=== PATIENT | female | born 1930 | race Caucasian/White ===

== ENCOUNTER 2016-12-20 18:44 | Inpatient (IN) | payer MEDICARE ==
[~2016-12-20] VITALS: Ht 162.6 cm; Wt 72.0 kg
[2016-12-20 18:46] VITALS: BP 108/77; PULSE 115; RESP 18; O2SAT 98
--- NOTE | 2016-12-20 18:58 | ED.REPORT ---
HPI-General Illness Date of Service December 20, 2016 ED Provider: Moni Cary MD Patient is an 86 year old female with a history of Afib on warfarin, presents to the ED after she was contacted her by her PCP for abnormal lab values. She has experienced generalized weakness, sharp and tingling pain in her arms and legs, shortness of breath, and palpitations after eating. She has had similar symptoms in the past when she was previously diagnosed with lymphedema. The patient denies dizziness, chest pain, black/bloody stool, nausea, vomiting or fever. Nursing Notes Stated Complaint: SOB, WEAK Chief Complaint: General Complaint Nursing Notes Reviewed: Yes Allergies: Coded Allergies: Penicillins (Verified Adverse Reaction, Intermediate, DIARRHEA, 12/20/16) Uncoded Allergies: CELECOXIB (Generic Allergy) (Allergy, Mild, Y, 05/28/03) PALPITATIONS BLUEFISH (Allergy, Unknown, 05/28/03) Scheduled Ferrous Sulfate (Ferrous Sulfate) 325 Mg Tablet 325 MG PO DAILY Furosemide (Furosemide) 20 Mg Tab 20 MG PO MORNING Hydroxyzine Pamoate (HydrOXYzine Pamoate) 25 Mg Capsule 25 MG PO QID Metoprolol Succinate ER (Metoprolol Succinate ER) 50 Mg Tab.er.24h 50 MG PO BID Multivitamin (Multivitamins) 1 Each Capsule 1 EACH PO DAILY Potassium Chloride (Potassium Chloride) 20 Meq Tab.er.prt 20 MEQ PO DAILY TAKE WITH FOOD Warfarin Sodium (Warfarin Sodium) 3 Mg Tablet 3 MG PO E,,SAT Warfarin Sodium (Warfarin Sodium) 6 Mg Tablet 6 MG PO SUN,MON,WED,FRI General Time Seen by MD: 18:57 Chief Complaint Other (abnormal lab values) Hx Obtained From: Patient Arrived By: Walk-in Sudden in Onset?: No Onset Occurred: More than a week ago... (3 weeks) Symptom Duration: Since onset Location: : Arm left: Arm right: Leg left: Leg right Quality: Sharp Severity: Current: Moderate Severity: Maximum: Moderate Recent Healthcare: No recent hospitalization Similar Sx Previous: Yes Past Medical History Past Medical History Lymphedema Reports: Atrial fibrillation Past Surgical History No surgical history provided Family History Noncontributory Smoking History Unknown if Ever Smoker Social History Other Social History: Good social support, , Local resident Ambulatory Status Independent Review of Systems Full Review of Systems Constitutional: Reports: Weakness - generalized, Denies: Fever Respiratory: Reports: Shortness of breath Cardiovascular: Reports: Palpitations (After eating), Denies: Chest pain GI: Reports: Abdominal pain (after eating), Denies: Bloody/tarry stool, Nausea, Vomiting Musculoskeletal: Reports: Extremity pain Neurologic: Denies: Dizziness Complete sys rev & neg: except as marked. Physical Exam Vital Signs Vital Signs Date Time Temp Pulse Resp B/P Pulse Ox O2 Delivery O2 Flow Rate FiO2 12/20/16 20:26 99 19 113/57 99 Room Air 12/20/16 18:46 36.3 115 18 108/77 98 Room Air Initial VS: Reviewed, Vital signs abnormal Head / Eyes: Atraumatic, Normocephalic Neck: Supple, Non-tender Skin: Warm, Dry Neurologic: Alert, Oriented Psychiatric: Mood/affect normal, Behavior normal ENT: Atraumatic, Pharynx NL Mouth: Positive: Mucous membranes dry Respiratory / Chest: Atraumatic, Breath sounds NL, Breath sounds = bilat, No respiratory distress Cardiovascular: Heart rate NL, Heart sounds NL, No gallop, No murmurs, No rubs Heart Rate / Rhythm: Positive: Irreg irregular rhythm Abdomen: No guarding, No rebound Tenderness/Guarding/Rebound: Positive: Tender epigastric Lower Extremity / Pelvis / MS: Atraumatic, Inspection NL, Full range of motion , No swelling, No edema Rectal for Blood: Positive: Blood - occult heme + Stool is brown Interpretation & Diagnostics Lab Results Interpretation Result Diagram: 12/20/16222712/20/16 193 Test 12/20/16 19:30 White Blood Count 5.7th/mm3 (3.8-10.1) Red Blood Count 3.07mil/mm3 (3.90-5.20) Mean Corpuscular Volume 74.6fL (81-100) Mean Corpuscular Hemoglobin 21.5pg (27.0-35.0) Mean Corpuscular Hemoglobin Concent 28.8% (32.0-37.0) Red Cell Distribution Width 19.4% (12.3-15.4) Platelet Count 290bil/L (150-400) Neutrophils (%) (Auto) 70.6% (40-74) Lymphocytes (%) (Auto) 17.9% (14-46) Monocytes (%) (Auto) 9.1% (4-12) Eosinophils (%) (Auto) 1.8% (0-5) Basophils (%) (Auto) 0.4% (0-3) Prothrombin Time 54.1sec (8.1-12.5) Prothromb Time International Ratio 4.89ratio Activated Partial Thromboplast Time 29.5sec (22.8-33.0) Sodium Level 140mEq/L (134-144) Potassium Level 4.2mEq/L (3.5-5.2) Chloride Level 103mEq/L (97-108) Carbon Dioxide Level 21mmol/L (18-29) Blood Urea Nitrogen 43mg/dL (8-27) Creatinine 1.38mg/dL (0.57-1.00) Estimat Glomerular Filtration Rate 52mL/min (>59) Glucose Level 121mg/dL (60-99) Calcium Level 8.7mg/dL (8.5-10.1) Magnesium Level 2.4mg/dL (1.6-2.6) Total Bilirubin 0.4mg/dL (0.0-1.2) Aspartate Amino Transf (AST/SGOT) 63U/L (0-50) Alanine Aminotransferase (ALT/SGPT) 67U/L (0-32) Alkaline Phosphatase 122U/L (25-165) Troponin T < 0.010ug/L (0.0-0.011) Pro-B-Type Natriuretic Peptide 1729pg/mL (0-738) Total Protein 6.0g/dL (6.4-8.4) Albumin 3.6g/dL (3.4-5.0) Lipase 79U/L (13-60) Hold Banks Top Tube Received (Received) ECG Interpretation ECG Interpretation: Atrial fibrillation with a rate of [address] ST depressions in V1-V3 IVCD Time: 19:15 Interpreted by: ED physician X-Ray Chest Interpretation Chest Xray Interpretation: IMPRESSION: Small right pleural effusion with adjacent atelectasis. Please correlate clinically. Probable large hiatal hernia (this could be confirmed with upper GI series) and bibasilar atelectasis/interstitial disease. Scoliosis Dictated by: Kashif Angelo M.D. on 12/20/2016 at 20:14 Interpretation / Wet Read by: Interpret - Radiologist Re-Eval/Medical Decision Med Decision/Clinical Course This patient was sent in by her primary care physician for anemia. She has been declining over several months and has been worse over the past 2 weeks. Her exam reveals that she is heme positive with brown stool. She could have peptic ulcer disease or another source of bleeding. The patient was slightly tachycardic in A. fib which did improve, no point was she hypotensive. Her bleeding seems to be subacute and not massive given her symptoms. She was started on Protonix drip and was given her first bag of FFP and packed red blood cells prior to going to the floor. Patient had a repeat hemoglobin which was similar to her initial one, she only received 50 mL of packed red cells at that point in time. Source of Hx: Old records Time of Eval: 20:00 Re-Evaluation/Progress Note: Patients diagnosis and plan for discharge is discussed. She understands and agrees with the plan. All questions have been answered at this time. Consultation #1: Referral / Consult Name: Omero Dickson MD Consulted With: Hospitalist Cigar Patcher: Will see patient, Agrees with eval, Agrees with plan, Accepts admit Consultation #2: Referral / Consult Name: Tashi Villa MD Call Returned at: 21:30 Note: Spoke with the court collections officer processing technician. Counseled Regarding: Diagnosis, Lab results, Need for admission Discharge & Departure Primary Impression: GI bleed GI bleed type/associated pathology: unspecified gastrointestinal hemorrhage type Qualified Code: K92.2 - Gastrointestinal hemorrhage, unspecified Additional Impressions: Severe anemia Warfarin-induced coagulopathy Disposition: ADMITTED TO HOSPITAL Discharge Condition All VS Reviewed: Yes Condition: Stable Referrals: Bladimir Navarro MD (PCP) Scribe Attestation Portions of this note were transcribed by Bret Valenzuela and Lennie Zheng. I, Dr. Cary personally performed the history, physical exam and medical decision- making; I reviewed and confirmed the accuracy of the information in the transcribed note. Signed by: Dominic Chong, 12/20/2016 - [id number]. copies to: Bladimir Navarro MD, Jena M MD December 20, 2016 18:58 Bret Valenzuela December 20, 2016 19:19 Lennie Zheng December 20, 2016 21:05
[2016-12-20] MEDS ORDERED: 0.9% Sodium Chloride 500 ML IV ONE (19:25)
[2016-12-20 19:55] LABS: BASOPHILS % (AUTO) 0.4 % (0-3); EOSINOPHILS % (AUTO) 1.8 % (0-5); MONOCYTES % (AUTO) 9.1 % (4-12); Mean Corpuscular Hemoglobin 21.5 pg (27.0-35.0); Mean Corpuscular Volume 74.6 fL (81-100); NEUTROPHILS % (AUTO) 70.6 % (40-74); Platelet Count 290 bil/L (150-400)
[2016-12-20 20:00] LABS: INR 4.89 ratio
[2016-12-20 20:09] LABS: TROPONIN T < 0.010 ug/L (0.0-0.011)
[2016-12-20 20:16] LABS: Lipase 79 U/L (13-60); Magnesium 2.4 mg/dL (1.6-2.6)
--- NOTE | 2016-12-20 20:17 | DRSVH ---
PROCEDURE: X-RAY CHEST ONE VIEW, PORTABLE ([id number]) INDICATIONS: SHORT OF BREATH TECHNIQUE: One view of the chest was acquired. COMPARISON: None. FINDINGS: Surgical changes and devices: None. Lungs and pleura: No pneumothorax. Diffuse interstitial changes and scarring/atelectasis. Small righ t pleural effusion. Probable large hiatal hernia although technically indeterminate.. Mediastinum: Mediastinal contours appear normal. Heart size is normal. Bones and chest wall: No suspicious bony lesions. There is severe scoliosis Overlying soft tissues a ppear unremarkable. IMPRESSION: Small right pleural effusion with adjacent atelectasis. Please correlate clinically. Probable large hiatal hernia (this could be confirmed with upper GI series) and bibasilar atelectasis /interstitial disease. Scoliosis Dictated by: Kashif Angelo M.D. on 12/20/2016 at 20:14 Approved by: Kashif Angelo M.D. on 12/20/2016 at 20:16
[2016-12-20 20:26] VITALS: BP 113/57; PULSE 99; RESP 19; O2SAT 99
[2016-12-20] MEDS ORDERED: HYDR-3797 PO (20:49)
[2016-12-20] MEDS ORDERED: POTA20TA16 PO (20:49)
[2016-12-20] MEDS ORDERED: WARF3TAB7 PO (20:49)
[2016-12-20] MEDS ORDERED: WARF6TAB6 PO (20:49)
[2016-12-20] MEDS ORDERED: MULT1CAP33 PO (20:49)
[2016-12-20] MEDS ORDERED: FUR20 PO (20:49)
[2016-12-20] MEDS ORDERED: FERR-83 PO (20:49)
[2016-12-20] MEDS ORDERED: METO-272 PO (20:49)
[2016-12-20] MEDS ORDERED: Phytonadione (Adult) 10 MG in Dextrose 5%-Pha MIX 50 ML IV ONE (21:10)
[2016-12-20] MEDS ORDERED: Pantoprazole Inj 80 MG, Pharmacy To Mix 1 EA in 0.9% Sodium Chloride 80 ML IV ONE ×4 (21:10→21:25)
[2016-12-20] MEDS ORDERED: Pantoprazole 4 mg/mL 10 mL Inj IVPUSH ONE (21:10)
[2016-12-20] MEDS ORDERED: Furosemide 10 mg/mL 4 mL Inj IVPUSH ONE (21:20)
[2016-12-20] MEDS ORDERED: Polyethylene Glycol (PEG) 17 Gm Powder PO PRN (21:20)
[2016-12-20] MEDS ORDERED: Ondansetron 2 mg/mL 2 mL Inj IVPUSH PRN (21:20)
[2016-12-20] MEDS ORDERED: Alum-Mag Hydrox-Simeth 30 mL Suspension PO PRN (21:20)
[2016-12-20 22:00] VITALS: BP 114/61; PULSE 111; RESP 15; O2SAT 98
[2016-12-20 22:59] LABS: APPEARANCE,URINE HAZY (CLEAR,HAZY); COLOR,URINE YELLOW (YELLOW); OCCULT BLOOD,URINE NEGATIVE (NEGATIVE); PH,URINE 5.5 (5.0-8.0); UROBILINOGEN,URINE NORMAL (NORMAL)
[2016-12-21] VITALS (13 sets, daily range): BP systolic 113–142; BP diastolic 71–93; PULSE 68–118; RESP 18–22; O2SAT 94–99
[2016-12-21] MEDS ORDERED: 0.9% Sodium Chloride 250 ML ONE (00:19)
--- NOTE | 2016-12-21 00:45 | PCM.HPMED ---
Subjective Date of Service December 20, 2016 Primary Provider: Admitting Physician: Omero Dickson MD Primary Care Physician: Bladimir Navarro MD Attending Physician: Omero Dickson MD Admit Status: From the Emergency Department, Full Admit, Remote Telemetry Chief Complaint: Low Hemoglobin from Clinic lab results History of Present Illness: Melissa Grijalva is an 86 year old female with Chronic Atrial fibrillation on warfarin, Hypertension, No's esophagitis who presents to [facility] emergency department after she was contacted her by her PCP for abnormal lab values, low Hgb Patient has noticed increased weakness (severe to the point she has to rest every few steps, she was limited in all her activities) for about a week. she also noticed increasing dyspnea especially on exertion. She also had some dizziness. She had a bowel movement earlier today and patient noted it was darker and almost black in color. Denies any hematochezia. Denies any nausea or vomiting. No fever or chills. no prior GI bleeding and no recent NSAID exposure. Patient reported having trouble sleeping at night and also recently having alot of generalized itching. She was prescribed Hydroxyzine but it causes her to be drowsy. She was evaluated by her Primary physician and labs were drawn. She has diagnosis of diverticulosis on Colonoscopy and is currently on Coumadin for Atrial fibrillation Case discussed with Dr Cary, fluids and blood transfusion initiated. She spoke to the electrical contractor Dietary Internship. Guaiac was positive for blood. Review of Systems: Pertinent positives as noted in HPI. All other systems were reviewed and are negative Allergies Coded Allergies: Penicillins (Verified Adverse Reaction, Intermediate, DIARRHEA, 12/20/16) Uncoded Allergies: CELECOXIB (Generic Allergy) (Allergy, Mild, Y, 05/28/03) PALPITATIONS BLUEFISH (Allergy, Unknown, 05/28/03) Home Medications From [facility], NOT YET CONFIRMED Melissa Grijalva [id number] 1930 12/16/2016 02:40 PM 08/24 Balance B-50 tablet take 1 by Oral route every day Coumadin 3 mg tablet take 1 (3MG) by oral route Monday, , Monday 6mg all other days of the week ferrous sulfate 325 mg (65 mg iron) tablet Take one tablet by oral route daily. furosemide 20 mg tablet 1 po q am hydroxyzine pamoate 25 mg capsule take 1 capsule by oral route 4 times every day metoprolol succinate ER 50 mg tablet,extended release 24 hr take 2 tabletS (50MG ) by mouth twice a day Multiple Vitamin Tab take 1 tablet by ORAL route every day with food POTASSIUM CL ER 20 MEQ TABLET TAKE 1 TABLET BY MOUTH EVERY DAY WITH FOOD PMH Osteopenia Paroxysmal SVT (supraventricular tachycardia) No's Esophagitis Atrial fibrillation on Coumadin Psoriasis Hyperlipidemia Valvular disease: Mitral regurgitation and Tricuspid regurgitation Hiatal hernia Diverticulosis Endometrial cancer s/p Hysterectomy DDD (degenerative disc disease), thoracolumbar Lymphedema with venous stasis, followed at the wound care clinic . Surgical History Hysterectomy and BSO Bilateral knee surgery Family History No family history of Colon cancer Both parents lived into the 90s Social History Hx Alcohol Use: No Hx Substance Use: No Hx Tobacco Use: No Smoking Status: Never Smoker Living Arrangement: with Family (her ) Exam Vital Signs Vital Sign - Last Date Time Temp Pulse Resp B/P Pulse Ox O2 Delivery O2 Flow Rate FiO2 12/20/16 20:26 99 19 113/57 99 Room Air 12/20/16 18:46 36.3 Exam General: Alert, Oriented X3, Cooperative, No acute Distress, talking in full sentences Eyes: PERRLA, Scleral Anicteric Mouth: Mouth Normal, Mucous Membranes Moist/[place] Neck: Supple, no Thyromegaly, trachea central. Chest & Lungs: Clear to auscultation & percussion, No adventitious breath sounds, no crackles, no wheeze Cardiovascular: Normal S1, Normal S2, No Murmurs/Rubs/Gallops, Irregularly irregular (No JVD, no peripheral edema) Pulses: Radial (present and equal), Dorsalis Pedi (present and equal) Abdomen: Soft, Non-tender, Non-distended, Normoactive bowel tones. Musculoskeletal: Unremarkable. Normal range of motion, no swollen or erythematous joints Extremities: 3 + pitting edema, no cyanosis, no clubbing. Skin: No rashes. Warm and dry, no erythematous areas. Compressive dressing on both legs Neurological: Grossly neurologically intact, has generalized weakness, Normal Speech, Sensation Intact Lymphatic: Lymph nodes Cervical and Axillary not palpable. Lab and Diagnostics Labs Laboratory Tests Test 12/20/16 19:30 White Blood Count 5.7th/mm3 (3.8-10.1) Red Blood Count 3.07mil/mm3 (3.90-5.20) Hemoglobin 6.6g/dL (12.0-15.6) Hematocrit 22.9% (35.0-46.0) Mean Corpuscular Volume 74.6fL (81-100) Mean Corpuscular Hemoglobin 21.5pg (27.0-35.0) Mean Corpuscular Hemoglobin Concent 28.8% (32.0-37.0) Red Cell Distribution Width 19.4% (12.3-15.4) Platelet Count 290bil/L (150-400) Neutrophils (%) (Auto) 70.6% (40-74) Lymphocytes (%) (Auto) 17.9% (14-46) Monocytes (%) (Auto) 9.1% (4-12) Eosinophils (%) (Auto) 1.8% (0-5) Basophils (%) (Auto) 0.4% (0-3) Prothrombin Time 54.1sec (8.1-12.5) Prothromb Time International Ratio 4.89ratio Activated Partial Thromboplast Time 29.5sec (22.8-33.0) Sodium Level 140mEq/L (134-144) Potassium Level 4.2mEq/L (3.5-5.2) Chloride Level 103mEq/L (97-108) Carbon Dioxide Level 21mmol/L (18-29) Blood Urea Nitrogen 43mg/dL (8-27) Creatinine 1.38mg/dL (0.57-1.00) Estimat Glomerular Filtration Rate 52mL/min (>59) Glucose Level 121mg/dL (60-99) Calcium Level 8.7mg/dL (8.5-10.1) Magnesium Level 2.4mg/dL (1.6-2.6) Total Bilirubin 0.4mg/dL (0.0-1.2) Aspartate Amino Transf (AST/SGOT) 63U/L (0-50) Alanine Aminotransferase (ALT/SGPT) 67U/L (0-32) Alkaline Phosphatase 122U/L (25-165) Troponin T < 0.010ug/L (0.0-0.011) Pro-B-Type Natriuretic Peptide 1729pg/mL (0-738) Total Protein 6.0g/dL (6.4-8.4) Albumin 3.6g/dL (3.4-5.0) Lipase 79U/L (13-60) Hold Banks Top Tube Received (Received) Result Diagram: 12/20/16192912/20/161929 X-Rays, CTs and MRIs X-RAY CHEST ONE VIEW, PORTABLE 11/20/16 IMPRESSION: Small right pleural effusion with adjacent atelectasis. Please correlate clinically. Probable large hiatal hernia (this could be confirmed with upper GI series) and bibasilar atelectasis/interstitial disease. Scoliosis Dictated by: Kashif Angelo M.D. on 12/20/2016 at 20:14 Approved by: Kashif Angelo M.D. on 12/20/2016 at 20:16 Assessment & Plan Melissa Grijalva is an 86 year old female with Chronic Atrial fibrillation on warfarin, Hypertension, No's esophagitis who presents to [facility] emergency department after she was contacted her by her PCP for abnormal lab values, low Hgb 1. Acute Lower GI bleeding. Present on admission Suspect possible Diverticular bleeding. Differential diagnosis includes Colon cancer, Vascular ectasias, Inflammatory bowel disease, Hemorrhoids, Anal fissure. History of No's esophagitis but no clinical evidence of Upper GI bleeding such as hematemesis. INR 4.89 - nothing by mouth - IV fluids resuscitations - Protonix drip - holding Coumadin, vitamin K dose given - GI consultation made 2. Symptomatic anemia due to GI blood loss. Present on admission Chronic Iron deficiency anemia - 2 units packed RBC transfused from ED - monitor H/H, target to keep Hbg > 7 3 Acute Kidney injury. Present on admission Likely due to pre renal azotemia due to hypovolemia - avoid nephrotoxic insults - holding diuretics - monitor urine output - avoid NSAID 4 Lymphedema and venous stasis problems Presumed stable - wound care consult requested - keep leg elevated 5 Hypertension currently stable with no evidence of volume loss - holding Metoprolol tonight in the event patient becomes hypotensive 6 Atrial fibrillation on Coumadin Currently rate controlled - monitor on telemetry - holding Coumadin - Acetaminophen as needed for mild pain/fever/headache - Bowel regimen as needed - Antiemetic as needed Patient admitted under inpatient status with expected length of stay > 2 midnights for severity of present symptoms, complexities of treatment plan and risk for adverse event . Resuscitation Status: CPR: Attempt Resuscitation Omero Dickson MD December 20, 2016 21:24
--- NOTE | 2016-12-21 01:03 | PCM.ADCARE ---
Advance Care Planning Note Purpose of Encounter: Active Diagnoses: Lower GI bleeding, possibly life threatening Acute on chronic anemia Chronic Atrial fibrillation Valvular disease, not a candidate for surgical intervention These active diagnoses are sufficient risk that focused discussion on advance car planning is indicated in order to allow the patient to thoughtfully consider personal goals of care and if situations arise that prevent the ability to personally give input to insure appropriate representation of their personal desires through documentation or informed surrogate decision makers Parties in Attendance: Patient and me Decisional Capacity: Good Plan: I reviewed her above mentioned diagnosis and her desires for ongoing aggressive care, including potential intubation and mechanical ventilation as well as CPR. Also discussed who would speak on her behalf should she be unable to do so, she states her daughter Dottie Clemens to be will be her proxy and power of county attorney. She understands her conditions for both her heart disease and GI bleeding carry poor prognosis with no good treatment options available but she would wanna fight it. " I wanna live long as I can" CODE STATUS: Full Code Time Spent Adv.Care Planning: Total time spent [id number] in education and discussion directly related to Advance Care Plannin minutes Omero Dickson MD December 21, 2016 01:03
--- NOTE | 2016-12-21 03:00 | NUR ---
admit note/transfusion/med rec Pt is admitted to room 3016 from ED around 23:55 for GIB & anemia. Pt finish her 1st bag of FFPs. 2nd unit of PRBCs and FFPs given and tolerated well w/o adverse reaction. IV Vit K given and protonix gtt started. Pt is A&Ox3, but forgetful. no s/s of bleeding. still has frequency due to lasix; denies dysuria. using BSC with 1PA. Pt is oriented to room and plan of care; she verbalized understanding. unable to complete med rec because pt is unable to recall the dosages. will pass on to Day RN/med rec nurse.
[2016-12-21] MEDS: 0.9% Sodium Chloride 1,000 ML IV SCH ×3 (03:15→14:36)
[2016-12-21 05:21] LABS: INR 2.21 ratio
--- NOTE | 2016-12-21 08:32 | PCM.PNMED ---
Subjective Date of Service December 21, 2016 Subjective Pt feeling overall well. Energy level certainly improved following transfusion. No abdominal pain. Still having dark stools overnight. Main complaint with with lower extremities extremities, especially the right calf which she notes is particularly uncomfortable. Legs were elevated overnight given lower extremity edema on doctor order however she notes recurrent level of elevation seems to be exacerbating her calf pain. Chest pain shortness of breath however. Unaware of any palpitations. No other acute complaints at this time other than being hungry and wishing to eat Exam Vital Signs Vital Sign - Last Date Time Temp Pulse Resp B/P Pulse Ox O2 Delivery O2 Flow Rate FiO2 12/21/16 04:51 36.5 110 20 117/76 98 Room Air Intake and Output 12/20/16 12/20/16 12/21/16 Cumulative From/Thru 15:00 23:00 07:00 12/20/16 18:46 - 12/21/16 06:22 Intake Total 500 ml 1249 ml 1749 ml Output Total 2400 ml 2400 ml Balance 500 ml -1151 ml -651 ml Intake Oral 0 ml 0 ml IV Total 500 ml 55 ml 555 ml Packed Cells 694 ml 694 ml FFP 500 ml 500 ml Output Urine Total 2400 ml 2400 ml # Bowel Movements 0 0 General: Alert, Oriented X3, Cooperative, Mild Distress Eyes: Other Mouth: Mucous Membr Moist/Eva Cardiovascular: Other (Irregular rhythm with regular rate. ) Abdomen: Non-tender, Non-distended Extremities: Other (B/L Lower extremity edema, with calves wrapped in UNaboots , not removed for exam with wound care ocnsult pending. ) Neurological: Grossly Neurologically Intact IVs and Medications Medications Reviewed: Medications were reviewed in detail Lab and Diagnostics Result Diagram: 12/21/16 0500 12/20/16 1930 X-Rays, CTs and MRIs X-RAY CHEST ONE VIEW, PORTABLE 11/20/16 IMPRESSION: Small right pleural effusion with adjacent atelectasis. Please correlate clinically. Probable large hiatal hernia (this could be confirmed with upper GI series) and bibasilar atelectasis/interstitial disease. Scoliosis Dictated by: Kashif Angelo M.D. on 12/20/2016 at 20:14 Approved by: Kashif Angelo M.D. on 12/20/2016 at 20:16 Assessment & Plan Melissa Grijalva is an 86 year old female with Chronic Atrial fibrillation on warfarin, Hypertension, No's esophagitis who presents to [facility] emergency department after she was contacted her by her PCP for abnormal lab values, low Hgb 1. Acute Lower GI bleeding. Present on admission Suspect possible Diverticular bleeding. Differential diagnosis includes Colon cancer, Vascular ectasias, Inflammatory bowel disease, Hemorrhoids, Anal fissure. History of No's esophagitis but no clinical evidence of Upper GI bleeding such as hematemesis. INR 4.89 - nothing by mouth - IV fluids resuscitations - Protonix drip - holding Coumadin, vitamin K dose given - GI consultation made, anticipate upper endoscopy later today on recommendation. 2. Symptomatic anemia due to GI blood loss. Present on admission Chronic Iron deficiency anemia - 2 units packed RBC transfused from ED - monitor H/H, target to keep Hbg > 7, currently at goal following transfusion. Pt HDS. 3 Acute Kidney injury. Present on admission Likely due to pre renal azotemia due to hypovolemia - avoid nephrotoxic insults - holding diuretics - monitor urine output - avoid NSAID 4 Lymphedema and venous stasis problems Presumed stable - wound care consult requested and pending - keep leg elevated 5 Hypertension currently stable with no evidence of volume loss - holding Metoprolol tonight in the event patient becomes hypotensive 6 Atrial fibrillation on Coumadin Currently rate controlled - continue monitor on telemetry - holding Coumadin . Pain Evaluation: Adequate Pain Control Resuscitation Status: CPR: Attempt Resuscitation Time spent 25 minutes Rickey Lopes DO December 21, 2016 08:32
[2016-12-21] MEDS: Pantoprazole Inj 80 MG, Pharmacy To Mix 1 EA in 0.9% Sodium Chloride 80 ML IV ONE ×4 (09:19→14:30)
--- NOTE | 2016-12-21 10:07 | NUR ---
Social Work: Initial Assessment Data: Pt is an 86 y/o male admitted for GI bleed, anemia. Pt's PCP is Dr Navarro, pt's insurance is [employer]. EMR reviewed. Readmit score not listed. MILIEU COORDINATOR met with pt at bedside, role explained. Pt states that she lives on [address] with her where she uses no DME. Pt states she does not drive, has no hx of HH or SNF, no LTC or VA benefits, is not a caregiver. No anticipated d/c planning needs at this time. MILIEU COORDINATOR will continue to follow if needs arise. Assessment: Pt who is independent at baseline. Plan: Pt will d/c home via POV with spouse when medically stable. No anticipated d/c planning needs at this time. MILIEU COORDINATOR will R/O possible HH need. MILIEU COORDINATOR will continue to follow if needs arise. ANTONIO Lugo Addendum: 12/21/16 at 1011 by PATY KNIGSLEY Amended: Links added.
--- NOTE | 2016-12-21 12:13 | NUR ---
Wound Care 86 yo female admitted with anemia, well known to [facility] for treatment of venous stasis ulcers of bilateral lower extremities. Seen at bedside for rewrap of her legs as she would have been due for a dressing change at the wound center today. 3 layer compression wraps applied for continued edema control, currently does not have any leg ulcerations. Follow up at the wound center for continuation of care on discharge.
--- NOTE | 2016-12-21 14:33 | PCM.CHPMED ---
Subjective Date of Service: December 21, 2016 Primary Physician: Admitting Physician: Omero Dickson MD Primary Care Physician: Bladimir Navarro MD Attending Physician: Omero Dickson MD Chief Complaint: Chief Complaint: Symptomatic/fatigue anemia History of Present Illness: 86-year-old female on warfarin for chronic A. 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 Patient states over approximately the last month she has felt extremely tired and rundown. She states that she has not recognized any red or black tarry stools, however nursing states that in the emergency department she had lack tarry stool. Denies any epigastric, abdominal pain or any recent history of GERD-like symptoms. Patient also denies any alcohol use in many years as well as no use of NSAIDs as she has been strictly advised not to use these. Patient does have arthritis but only takes Tylenol. On admission last site the patient was fluid resuscitated and transfused PRBCs and FFP. Patient's INR was actually supratherapeutic at 4.89 with repeat this a.m. 2.21. Patient also has what looks to be acute kidney injury although this difficult to tell due to no baseline. Patient has a very mild transaminase elevation as well as a mild lipase elevation. GI was consult and for possible scope to identify source of bleeding. PMH Past Medical History Osteopenia Paroxysmal SVT (supraventricular tachycardia) No's Esophagitis Atrial fibrillation on Coumadin Psoriasis Hyperlipidemia Valvular disease: Mitral regurgitation and Tricuspid regurgitation Hiatal hernia Diverticulosis Endometrial cancer s/p Hysterectomy DDD (degenerative disc disease), thoracolumbar Lymphedema with venous stasis, followed at the wound care clinic Hx Any Other Health Problems?: YesHx Diabetes: NoBedside Blood Glucose: 124 Surgical History Hysterectomy and BSO Bilateral TKA Home Medications Coumadin 3 mg tablets, Monday; 6 mg on Monday, Monday, Monday, Monday Ferrous sulfate 325 mg Furosemide 20 mg tablets Hydroxyzine pamoate 25 mg Metoprolol succinate ER 50 mg Multivitamin Potassium chloride ER 20 mEq Allergies: Coded Allergies: Penicillins (Verified Adverse Reaction, Intermediate, DIARRHEA, 12/20/16) Uncoded Allergies: CELECOXIB (Generic Allergy) (Allergy, Mild, Y, 05/28/03) PALPITATIONS BLUEFISH (Allergy, Unknown, 05/28/03) Family History Family History No history of colon cancer Social History Occupation: retiredHx Alcohol Use: NoHx Substance Use: NoHx Tobacco Use: No Smoking Status: Never Smoker Living Arrangement: with Family (her ) Exam Vital Signs Vital Sign - Last Date Time Temp Pulse Resp B/P Pulse Ox O2 Delivery O2 Flow Rate FiO2 12/21/16 11:02 87 12/21/16 09:44 36.4 20 132/79 94 Room Air Intake and Output 12/20/16 12/20/16 12/21/16 Cumulative From/Thru 15:00 23:00 07:00 12/20/16 18:46 - 12/21/16 06:22 Intake Total 500 ml 1249 ml 1749 ml Output Total 2400 ml 2400 ml Balance 500 ml -1151 ml -651 ml Intake Oral 0 ml 0 ml IV Total 500 ml 55 ml 555 ml Packed Cells 694 ml 694 ml FFP 500 ml 500 ml Output Urine Total 2400 ml 2400 ml # Bowel Movements 0 0 Additional Information: General: Patient awake alert in no acute distress HEENT: Membranes dry, conjunctiva pale Cardio: Regular rate Respiratory: CTA bilaterally Abdomen: No distention, positive bowel sounds, no noticeable tenderness Extremities: Bilateral lower extremities are wrapped in Richard wraps this patient states his sleeping; newly wrapped and did not remove wrap Neuro: Appears to be neurologically intact by sensation and cranial nerves Psych: Appropriate mood and affect Skin: No rashes noted or petechia Lab and Diagnostics Result Diagram: 12/21/16 0500 12/20/16 1930 X-Rays, CTs and MRIs Chest x-ray Small right pleural effusion with adjacent atelectasis. Please correlate clinically. Probable large hiatal hernia (this could be confirmed with upper GI series) and bibasilar atelectasis/interstitial disease. Scoliosis Dictated by: Kashif Angelo M.D. on 12/20/2016 at 20:14 Assessment & Plan Assessment Assessment and plan Problem list Acute GI bleed with blood loss anemia Chronic atrial fibrillation on warfarin Hyperglycemia Mild transaminitis and elevated lipase Possible acute kidney injury 36-year-old female with what appears to be melena due to acute GI bleed with suspicion for gastric or duodenal ulceration due to patient's history of No 's esophagus and GERD. Patient has not been on a PPI or H2 everardo and is currently on warfarin the supra therapeutic INR 4.89. Today will attempt to perform an EGD for identification and pending those results will consider colonoscopy. She required a colonoscopy tomorrow we will start her on GoLYTELY tonight. Continue Protonix drip has already initiated by the hospitalist. She is to be made nothing by mouth until after the procedure. Also recommend obtaining an A1c as patient's blood sugar was elevated on admit. Also recommend repeat CMP for liver studies and serial H&H through the night, as well as to monitor the MICHAEL. Repeat LFTs and lipase tomorrow. I saw and examined the patient with the resident and agree with above. Problems: Pain Evaluation: Adequate Pain Control Resuscitation Status: CPR: Attempt Resuscitation Iain Crum DO December 21, 2016 14:33 Tashi Villa MD December 22, 2016 09:03
[2016-12-21] MEDS: MeTOProlol XL 50 mg ER24 Tablet PO SCH (22:42)
[2016-12-22] VITALS (12 sets, daily range): BP systolic 88–129; BP diastolic 59–89; PULSE 90–115; RESP 14–20; O2SAT 91–95
[2016-12-22] MEDS: 0.9% Sodium Chloride 1,000 ML IV SCH (00:39)
--- NOTE | 2016-12-22 06:08 | NUR ---
Shift Note Pt NPO after midnight d/t endoscopy procedure scheduled for this morning (5-4). Pt is SOB upon exertion on RA. Pt on tele A-fib in the 100's. Legs are wrapped. Pt up to BSC with FWW, passing gas. Pt uses cane at home. Uses call light appropriately
[2016-12-22 07:02] LABS: BASOPHILS % (AUTO) 0.3 % (0-3); EOSINOPHILS % (AUTO) 1.5 % (0-5); MONOCYTES % (AUTO) 10.6 % (4-12); Mean Corpuscular Hemoglobin 23.7 pg (27.0-35.0); Mean Corpuscular Volume 76.9 fL (81-100); Platelet Count 239 bil/L (150-400)
[2016-12-22] MEDS ORDERED: Propofol 10,000 mCg/mL 20 mL Inj ONE (09:11)
[2016-12-22] MEDS ORDERED: fentaNYL-PF 50 mCg/mL 2 mL Inj ONE (09:11)
[2016-12-22] MEDS ORDERED: Ketamine 10 mg/mL 20 mL Inj ONE (09:11)
[2016-12-22] MEDS ORDERED: Phenylephrine/NS 100 mCg/mL 10 mL Syringe IVPUSH ONE (09:11)
[2016-12-22 10:12] LABS: INR 1.36 ratio
[2016-12-22] MEDS: MeTOProlol XL 50 mg ER24 Tablet PO SCH ×2 (10:24→20:30)
--- NOTE | 2016-12-22 10:27 | PCM.PNMED ---
Subjective Date of Service December 22, 2016 Subjective GI progress note Patient did well overnight. She was disappointed that she did not go to EGD yesterday. Patient denies symptoms except for "being tired of lying in bed." No abdominal pain, nausea, vomiting, bowel movements, melena, hematochezia, or other review of systems. Patient has been nothing by mouth since midnight. Do not resume metoprolol this morning at difficulty finding the nurse to give her her metoprolol. Exam Vital Signs Vital Sign - Last Date Time Temp Pulse Resp B/P Pulse Ox O2 Delivery O2 Flow Rate FiO2 12/22/16 09:51 36.6 100 19 129/89 95 Nasal Cannula 2.00 Intake and Output 12/21/16 12/21/16 12/22/16 Cumulative From/Thru 15:00 23:00 07:00 12/20/16 18:46 - 12/22/16 06:04 Intake Total 351 ml 400 ml 2376 ml 4876 ml Output Total 800 ml 3200 ml Balance 351 ml -400 ml 2376 ml 1676 ml Intake Oral 400 ml 400 ml IV Total 351 ml 2376 ml 3282 ml Packed Cells 694 ml FFP 500 ml Output Urine Total 800 ml 3200 ml # Voids 1 1 # Bowel Movements 0 0 Exam General: Patient awake alert in no acute distress HEENT: Membranes dry, conjunctiva pale Cardio: Regular rate Respiratory: CTA bilaterally Abdomen: No distention, positive bowel sounds, no noticeable tenderness Extremities: Bilateral lower extremities are wrapped in Richard wraps this patient states his sleeping; newly wrapped and did not remove wrap Neuro: Appears to be neurologically intact by sensation and cranial nerves Psych: Appropriate mood and affect Skin: No rashes noted or petechia IVs and Medications Medications Reviewed: Medications were reviewed in detail Lab and Diagnostics Result Diagram: 12/22/16 0640 12/22/16 0640 X-Rays, CTs and MRIs X-RAY CHEST ONE VIEW, PORTABLE 11/20/16 IMPRESSION: Small right pleural effusion with adjacent atelectasis. Please correlate clinically. Probable large hiatal hernia (this could be confirmed with upper GI series) and bibasilar atelectasis/interstitial disease. Scoliosis Dictated by: Kashif Angelo M.D. on 12/20/2016 at 20:14 Approved by: Kashif Angelo M.D. on 12/20/2016 at 20:16 Assessment & Plan Assessment/plan 86-year-old female with symptomatic and severe anemia second to presumed GI blood loss. Patient was supposed to go for EGD yesterday but was unable to do so. Current plan is for EGD at noon today. In the meantime the patient should be kept nothing by mouth except for her metoprolol was given this morning and this has been discussed with the nurse. She also stay on IV hydration as well as Protonix drip. After EGD patient can be switched from protonic strip to Protonix 40 mg IV push twice a day. Reviewing the patient's blood work patient would likely benefit greatly from iron supplementation after discharge. Additional recommendations will be made after procedure today. I have seen and examined the patient with the resident and agree with above. Thank you for allowing us to participate in the care of this patient Resuscitation Status: CPR: Attempt Resuscitation Iain Crum DO December 22, 2016 10:27 Tashi Villa MD December 23, 2016 16:40
--- NOTE | 2016-12-22 10:36 | PCM.PNMED ---
Subjective Date of Service December 22, 2016 Subjective Patient was unable to receive upper endoscopy yesterday due to K procedures causing a delay in surgical schedule. Nonetheless she remained stable overnight continues on IV fluids has no acute complaints. There is an abdominal pain mainly just feels constricted with all tubes attached to her continued hospitalization has been a bit draining. He does understand the need for thorough. Tools are still dark but not excessively so she notes no blood in stools. Otherwise no acute complaints. Denies fever chills shortness of breath. Does endorse a little bit of weakness this is more chronic. Exam Vital Signs Vital Sign - Last Date Time Temp Pulse Resp B/P Pulse Ox O2 Delivery O2 Flow Rate FiO2 12/22/16 09:51 36.6 100 19 129/89 95 Nasal Cannula 2.00 Intake and Output 12/21/16 12/21/16 12/22/16 Cumulative From/Thru 15:00 23:00 07:00 12/20/16 18:46 - 12/22/16 06:04 Intake Total 351 ml 400 ml 2376 ml 4876 ml Output Total 800 ml 3200 ml Balance 351 ml -400 ml 2376 ml 1676 ml Intake Oral 400 ml 400 ml IV Total 351 ml 2376 ml 3282 ml Packed Cells 694 ml FFP 500 ml Output Urine Total 800 ml 3200 ml # Voids 1 1 # Bowel Movements 0 0 Exam General: Alert, Oriented X3, Cooperative, Mild Distress Mouth: Mucous Membrane Moist/Tubac Cardiovascular: Irregular rhythm with regular rate. Abdomen: Non-tender, Non-distended Extremities: B/L Lower extremity edema, with calves freshly wrapped in UNaboots from yesterday Neurological: Grossly Neurologically Intact Skin; multiple ecchymosis and bruising on upper extremities from previous blood draws. IVs and Medications Medications Reviewed: Medications were reviewed in detail Lab and Diagnostics Result Diagram: 12/22/16 0640 12/22/16 0640 X-Rays, CTs and MRIs X-RAY CHEST ONE VIEW, PORTABLE 11/20/16 IMPRESSION: Small right pleural effusion with adjacent atelectasis. Please correlate clinically. Probable large hiatal hernia (this could be confirmed with upper GI series) and bibasilar atelectasis/interstitial disease. Scoliosis Dictated by: Kashif Angelo M.D. on 12/20/2016 at 20:14 Approved by: Kashif Angelo M.D. on 12/20/2016 at 20:16 Assessment & Plan Melissa Grijalva is an 86 year old female with Chronic Atrial fibrillation on warfarin, Hypertension, No's esophagitis who presents to [facility] emergency department after she was contacted her by her PCP for abnormal lab values, low Hgb 1. Acute Lower GI bleeding. Present on admission Suspect possible Diverticular bleeding. Differential diagnosis includes Colon cancer, Vascular ectasias, Inflammatory bowel disease, Hemorrhoids, Anal fissure. History of No's esophagitis but no clinical evidence of Upper GI bleeding such as hematemesis. INR 4.89 - nothing by mouth, endoscopy bili yesterday of a plan for today - IV fluids resuscitations - Protonix drip was not started though this was GI plan, have now initiated Protonix 80 mg IV twice daily, given stable H&H in the setting of no PPI use overnight. - holding Coumadin, vitamin K dose given - GI consultation made, continues to appreciate assistance with this complicated case 2. Symptomatic anemia due to GI blood loss. Present on admission Chronic Iron deficiency anemia - 2 units packed RBC transfused from ED - monitor H/H, target to keep Hbg > 7, currently at goal following transfusion. Pt HDS. - H&H up returning overnight, and recurrent discontinuation of Protonix, lack of dark tarry stool supports cessation of GI bleeding. Stability will be helpful nonetheless toward identify location of GI bleed, and support this is ( diagnosis. 3 Acute Kidney injury. Present on admission Likely due to pre renal azotemia due to hypovolemia - avoid nephrotoxic insults - holding diuretics - monitor urine output - avoid NSAID 4 Lymphedema and venous stasis problems Presumed stable - wound care consult requested and pending - keep leg elevated 5 Hypertension currently stable with no evidence of volume loss - holding Metoprolol tonight in the event patient becomes hypotensive 6 Atrial fibrillation on Coumadin Currently rate controlled - continue monitor on telemetry - holding Coumadin 7. Hyponatremia - Patient's been transitioned to half-normal saline while nothing by mouth - Conditions mild in nature we will continue to monitor. Pain Evaluation: Adequate Pain Control Resuscitation Status: CPR: Attempt Resuscitation Time spent 30 minutes Rickey Lopes DO December 22, 2016 10:36
[2016-12-22] MEDS: Pantoprazole 4 mg/mL 10 mL Inj IVPUSH SCH ×2 (10:45→17:58)
--- NOTE | 2016-12-22 14:58 | NUR ---
Pt off floor to Endoscopy Tele removed and SL per request. Addendum: 12/22/16 at 1708 by EPIFANIO KRAMER RN Pt back on floor around 1700. Tele placed back on. No s/sx of distress. Denies pain/SOB. Report received from ENDO.
--- NOTE | 2016-12-22 15:23 | PCM.HPANE ---
Patient Data Date of Service: December 22, 2016 Surgeon Admitting Provider:Omero Dickson MD Attending Provider:Omero Dickson MD Primary Care Physician:Bladimir Navarro MD Other Provider: Reason for Visit Gi Bleed, Anemia Ht/WT & BMI Height (Feet): 5 Height (Inches): 4.00 Weight (Kilograms): 69.600 Body Mass Index 26.00 Allergies Coded Allergies: Penicillins (Verified Adverse Reaction, Intermediate, DIARRHEA, 12/20/16) Uncoded Allergies: CELECOXIB (Generic Allergy) (Allergy, Mild, Y, 05/28/03) PALPITATIONS BLUEFISH (Allergy, Unknown, 05/28/03) Past Anesthesia History Anesthesia History: Denies:: Abnormal Airway, Anesthesia Reactions, Difficult Intubation, Fam Anesthesia Reaction, Fam Malignant Hypertherm, Malignant Hyperthermia Diabetes History Hx Diabetes?: No Current Bedside Blood Glucose: 124 MRSA MRSA: No Medications Blood Thinner: Coumadin Last Dose Blood Thinner: December 20, 2016 Home Meds Incl Beta Suzie: Yes Date Beta Suzie Taken: December 22, 2016 Time Beta Suzie Taken: 1000 Reported Medications Ferrous Sulfate 325 Mg Wquees600 Mg PO DAILY 30 Days Ref 0 12/20/16 Multivitamin (Multivitamins)1 Each Capsule1 Each PO DAILY 12/20/16 Furosemide 20 Mg Tab20 Mg PO MORNING 30 Days Ref 0 12/20/16 Potassium Chloride 20 Meq Tab.er.prt20 Meq PO DAILY 30 Days Ref 0 TAKE WITH FOOD 12/20/16 Metoprolol Succinate ER 50 Mg Tab.er.[id number] Mg PO BID Ref 0 12/20/16 Warfarin Sodium 6 Mg Tablet6 Mg PO MON,MON,WED,MON 30 Days 12/20/16 Warfarin Sodium 3 Mg Tablet3 Mg PO MON,,MON 30 Days Ref 0 12/20/16 Hydroxyzine Pamoate (HydrOXYzine Pamoate)25 Mg [id number] Mg PO QID Ref 0 12/20/16 History History of ENT Problems?: Yes HEENT History: Positive for:: Cataracts (R cataract surgery) Hearing Problem (mild [place]) Denies:: Abnormal Airway Difficult Intubation Dysphagia Glaucoma Denture Type: None 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 Hx of Problems?: Yes Genitourinary History: Positive for:: Urinary Tract Infection Denies:: Kidney Stones Female Hx: Denies:: Currently Endometriosis Pelvic Inflammatory Problems with Breasts? Hx Musculoskeletal Problems?: Yes Musculoskeletal History: Positive for:: Joint Replacement (bilat knees) Denies:: Back Injury Fibromyalgia Musculoskeletal Trauma Hx of Psycho/Social Problems?: No Psycho Social History: Denies:: Anxiety Hx Depression Hx Surgeries?: Yes (bilat knee replacement; tonsillectomy; R cataract surgery) Hx Any Other Health Problems?: Yes Other History: Positive for:: Hospitalization (pt unsure) Denies:: Cancer Thyroid Disease History Blood Transfusions: Denies:: Accept Blood Products? Blood Transfusions Hx Diabetes: NoBedside Blood Glucose: 124 Occupation: retired Hx Alcohol Use: NoHx Substance Use: No Smoking Status: Never Smoker Stop/Bang Treated for Sleep Apnea?: No Do You Have a CPAP Machine?: No S-Snoring: Do You Snore Loudly: No T-Tired: feel tired, fatigued: No O-Obsered: Observed not breath: No P-Blood Pressure: treated: Yes B- Body Mass Index > 35 kg/m2: No A- Age over 50: Yes N- Neck Large Circumference: No G- Gender Male: No YUDY Total Score: 2 YUDY Risk Assessment: Low Risk, <3 Yes Risk Assessment Category Category 1A: Patient has history of documented sleep apnea, and HAS NOT received any narcotic, sedative or anesthesia administration during this stay. Category 1B: Patient has history of documented sleep apnea, and HAS received any narcotic , sedative or anesthesia administration during this stay Category 2: Patient has SUSPECTED Obstructive Sleep Apnea, and HAS received any narcotic , sedative or anesthesia administration during this stay. Category 3: Patient has SUSPECTED Obstructive Sleep Apnea and HAS NOT received narcotic, sedative or anesthesia administration during this stay. Category 4: Outpatient in Procedural Areas with known sleep apnea or who screen positive for High Risk via the STOP/BANG questionnaire. Exam Exam Vital Signs Vital Signs Date Time Temp Pulse Resp B/P Pulse Ox O2 Delivery O2 Flow Rate FiO2 12/22/16 15:04 36.3 98 14 108/79 94 Room Air 12/22/16 09:51 36.6 100 19 129/89 95 Nasal Cannula 2.00 General Appearance: Alert, Oriented X3, Cooperative, Mild Distress HEENT/AIRWAY: MP 2 Lungs: Clear to Auscultation, Normal Air Movement Heart: Exam Unremarkable, Regular Rate/Rhythm, No Murmurs/Rubs/Gallops Meds/Labs/Diagnostics Admission Meds Current Medications Metoprolol Succinate 50 mg 50 mg BID PO Last administered on 12/22/16 10:24; Start 12/21/16 at 22:23 Sodium Chloride (1/2 Normal Saline) 1,000 ml @ 100 mls/hr Q10H IV Last administered on 12/22/16 10:45; Start 12/22/16 at 10:30 Pantoprazole (Protonix Inj) 80 mg BIDAC IVPUSH Last administered on 12/22/16 10 :45; Start 12/22/16 at 10:35 Bedside Blood Glucose: 124 Labs Test 12/20/16 19:30 12/20/16 22:53 12/22/16 06:40 12/22/16 09:45 Activated Partial Thromboplast Time 29.5sec (22.8-33.0) Magnesium Level 2.4mg/dL (1.6-2.6) Troponin T < 0.010ug/L (0.0-0.011) Pro-B-Type Natriuretic Peptide 1729pg/mL (0-738) Lipase 79U/L (13-60) Hold Banks Top Tube Received (Received) Urine Color Yellow (YELLOW) Urine Appearance Hazy (CLEAR,HAZY) Urine pH 5.5 (5.0-8.0) Urine Specific Clemons 1.010 (1.003-1.035) Urine Protein Negativemg/dL (NEG,TRACE) Urine Glucose (UA) Negativemg/dL (NEGATIVE) Urine Ketones Negativemg/dL (NEGATIVE) Urine Occult Blood Negative (NEGATIVE) Urine Nitrite Positive (NEGATIVE) Urine Bilirubin Negative (NEGATIVE) Urine Urobilinogen Normalmg/dL (NORMAL) Urine Leukocyte Esterase Small (NEGATIVE) Urine RBC 0-2/hpf (0-2) Urine WBC 0-5/hpf (0-5) Urine Epithelial Cells Few/hpf (NONE-MOD) Urine Crystals None seen (NONE SEEN) Urine Bacteria Many/hpf (NONE-FEW) Urine Hyaline Casts Occasional/lpf (NONE) Urine Granular Casts None seen (NONE SEEN) Urine Waxy Casts None seen (NONE SEEN) Urine Red Blood Cell Casts None seen (NONE SEEN) Urine White Blood Cell Casts None seen (NONE SEEN) Urine Mucus None seen (None Seen) Urine Trichomonas None seen (NONE SEEN) Urine Yeast None (NONE SEEN) Urinalysis Comment None Urine Culture Reflexed Indicated White Blood Count 6.6th/mm3 (3.8-10.1) Red Blood Count 3.89mil/mm3 (3.90-5.20) Hemoglobin 9.2g/dL (12.0-15.6) Hematocrit 29.9% (35.0-46.0) Mean Corpuscular Volume 76.9fL (81-100) Mean Corpuscular Hemoglobin 23.7pg (27.0-35.0) Mean Corpuscular Hemoglobin Concent 30.8% (32.0-37.0) Red Cell Distribution Width 20.6% (12.3-15.4) Platelet Count 239bil/L (150-400) Neutrophils (%) (Auto) 74.0% (40-74) Lymphocytes (%) (Auto) 13.3% (14-46) Monocytes (%) (Auto) 10.6% (4-12) Eosinophils (%) (Auto) 1.5% (0-5) Basophils (%) (Auto) 0.3% (0-3) Sodium Level 146mEq/L (134-144) Potassium Level 4.0mEq/L (3.5-5.2) Chloride Level 109mEq/L (97-108) Carbon Dioxide Level 22mmol/L (18-29) Blood Urea Nitrogen 29mg/dL (8-27) Creatinine 0.82mg/dL (0.57-1.00) Estimat Glomerular Filtration Rate 95mL/min (>59) Glucose Level 89mg/dL (60-99) Calcium Level 8.4mg/dL (8.5-10.1) Total Bilirubin 1.3mg/dL (0.0-1.2) Aspartate Amino Transf (AST/SGOT) 70U/L (0-50) Alanine Aminotransferase (ALT/SGPT) 68U/L (0-32) Alkaline Phosphatase 129U/L (25-165) Total Protein 5.0g/dL (6.4-8.4) Albumin 3.4g/dL (3.4-5.0) Prothrombin Time 14.6sec (8.1-12.5) Prothromb Time International Ratio 1.36ratio Plan Impression Patient chart reviewed, patient interviewed and anesthestic plan with risks, benefits, and alternatives discussed, and informed consent obtained. NPO per Anesth. Guidelines: Yes ASA Physical Status: ASA3 Severe Disease Anesthetic Plan: MAC Bene/Risks/Altern/Consents: Yes HP Complete Prior to Induction: Yes Martinez Jane MD December 22, 2016 15:23
[2016-12-22] MEDS ORDERED: Lactated Ringer's 1,000 ML IV ONE ×2 (15:33)
--- NOTE | 2016-12-22 16:13 | PCM.ENDEGD ---
EGD Date of Service: December 22, 2016 Physician Omero Dickson MD Pre Procedure Diagnosis: Anemia Post Procedure Dx & Findings: Large hiatal hernia No's esophagus suspected fundic polyp and small intestine AVM. Procedure Esophagogastroduodenoscopy PROCEDURE IN DETAIL: After proper sedation, Olympus video endoscope was inserted into patient's mouth and esophagus was successfully intubated. Scope introduced esophagus. Esophagus showed normal shiny whitish mucosa consistent with squamous cell component. The Z line was irregular I think there is a 3 cm No's esophagus without any ulcer or mass or nodule. Stomach further advanced to the stomach. Patient had a huge hiatal hernia. It appears over half of her stomach is in the chest. Small 2-3 mm fundic polyps are noted. Antrum showed normal shiny mucosa with normal appearing rugae folds without any ulcer mass erosion. Cardia fundus body antrum pylorus were all visualized. Retroflexion was done. Stomach was easily inflated and deflatable using air. Scope further events to the proximal jejunum. Duodenum revealed normal villous structures with normal appearing folds without any mass ulcer erosion. However in the proximal jejunum, I saw few submillimeter AVM. None of them were bleeding. Impression Probable No's esophagus Large hiatal hernia as described above. It appears most of her stomach is in her chest. 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 Fundic polyps I suspect she probably has AVMs further down in the small intestines. This is probably the cause of her anemia. Recommendation We will talk to her about doing a colonoscopy if negative CT enterography and capsule endoscopy. In the meantime I would recommend high-dose iron supplements and with the risk and benefits of Coumadin use. Presedation Assessment Risks and Benefits Informed consent was obtained from the patient after all risks and benefits including but not limited to drug reaction, infection, pain, bleeding, perforation, as well as alternatives were discussed. Patient monitoring Continuous pulse oximetry, cardiac monitoring, blood pressure monitoring, IV access, and oxygen at 2L per nasal cannula. Complications There were no periprocedural complications identified. Post Procedure Plan Post Procedure Recommendations 1. Restrict activities today. 2. Resume normal activities in the morning. 3. Resume medications. 4. GERD behavioral modification: - Avoid fatty, acidic, spicy, large meals - Do not lie down after meals - Do not eat or drink anything for at least 2 1/2 hours before going to bed at night - Discontinue tobacco and alcohol - Decrease or avoid caffeine - Avoid chocolate and mints - Decrease weight - Avoid aspirin and non steroidal anti-inflammatory agents (NSAID) such as Aleve, Advil, Mobic, Naproxen, Ibuprofen, etc 5. Add proton pump inhibitor. Take 30 minutes before 1st meal of the day. 6. Patient informed of normal post procedure side effects as bloating, drowsiness, blood streaking in the stool 7. If gastric biopsy reveal H.pylori, continue with appropriate treatment 8. If small bowel biopsy reveals celiac, continue with appropriate treatment 9. Please don't hesitate to call me with any questions Tashi Villa MD December 22, 2016 16:13
--- NOTE | 2016-12-22 17:26 | PCM.ANEP1 ---
Post Anesthesia Phase 1 PACU Phase 1 Assessment Date of Service: December 22, 2016 Vital Signs Vital Signs Date Time Temp Pulse Resp B/P Pulse Ox O2 Delivery O2 Flow Rate FiO2 12/22/16 16:35 111 14 101/65 94 Room Air 12/22/16 16:27 96 14 88/69 92 Nasal Cannula 2 12/22/16 16:20 115 14 103/70 95 Nasal Cannula 2 12/22/16 15:04 36.3 98 14 108/79 94 Room Air 12/22/16 09:51 36.6 100 19 129/89 95 Nasal Cannula 2.00 Anesthetic Administered: MAC Level of Alertness: Awake, talking Pain: No Nausea or Vomiting: No Oxygen Delivery: Room Air Lungs: Clear to Auscultation, Normal Air Movement Complications: No Martinez Jane MD December 22, 2016 17:26
[2016-12-22] MEDS ORDERED: PEG/Electrolytes 4,000 mL Solution PO ONE (17:40)
--- NOTE | 2016-12-22 18:49 | NUR ---
HR/Activity Pt Tele reading Afib 100's. Tele reported HR going into 150's. Checked on pt, on BSC for voiding. Pt denied any pain with no objective s/sx of distress. HR dropped back down to 100's after activity. Later in shift, attempted to have pt transfer to [facility]. Pt reported being to tired and weak to transfer. Slide-assisted pt into [facility]. Pt BP stable - 120s/80s.
[2016-12-23] VITALS (9 sets, daily range): BP systolic 88–113; BP diastolic 53–78; PULSE 60–150; RESP 16–20; O2SAT 94–96
--- NOTE | 2016-12-23 05:10 | NUR ---
Bowel Prep Pt finished almost all of bowel prep by 013. She said that she was done with it and felt like her bowels were clear enough and had no more stool. Was on BSC while on the prep and tolerated it well. Withheld metoprolol d/t bowel prep. Pt resting comfortably in bed with no s/sx of discomfort. On tele, A-fib in the 70-90's after prep. Makes needs known. Uses call light appropriately. Will continue to monitor. Addendum: 12/23/16 at 0556 by SAHIL COLON Per child monitor, A-fib in the 90's to low 100's. With any type of activity, raises to 120's-130's.
[2016-12-23 06:27] LABS: BASOPHILS % (AUTO) 0.3 % (0-3); EOSINOPHILS % (AUTO) 1.7 % (0-5); NEUTROPHILS % (AUTO) 68.9 % (40-74)
[2016-12-23 06:39] LABS: MONOCYTES % (AUTO) 13.1 % (4-12); Mean Corpuscular Hemoglobin 23.8 pg (27.0-35.0); Mean Corpuscular Volume 76.4 fL (81-100); Platelet Count 219 bil/L (150-400)
[2016-12-23] MEDS: MeTOProlol XL 50 mg ER24 Tablet PO SCH ×2 (08:00→20:13)
[2016-12-23] MEDS: Pantoprazole 4 mg/mL 10 mL Inj IVPUSH SCH ×2 (08:01→17:34)
--- NOTE | 2016-12-23 09:53 | PCM.PNMED ---
Subjective Date of Service December 23, 2016 Subjective GI progress note No issues overnight. EGD yesterday was negative for obvious cause bleed however the patient did have few AVMs in the small intestines which are surmised to be the cause of the patient's low GI bleed. As a patient is going to be discharged on warfarin, do diligent should be given with a colonoscopy. That scheduled for this afternoon and patient was made nothing by mouth tonight. Patient slept well overnight without complaint. This morning she denies review of systems. Exam Vital Signs Vital Sign - Last Date Time Temp Pulse Resp B/P Pulse Ox O2 Delivery O2 Flow Rate FiO2 12/23/16 08:57 36.6 89 16 111/70 95 Room Air 12/22/16 16:27 2 Intake and Output 12/22/16 12/22/16 12/23/16 Cumulative From/Thru 15:00 23:00 07:00 12/20/16 18:46 - 12/23/16 05:08 Intake Total 550 ml 300 ml 1086 ml 6812 ml Output Total 325 ml 350 ml 3875 ml Balance 225 ml -50 ml 1086 ml 2937 ml Intake Oral 550 ml 100 ml 1050 ml IV Total 200 ml 1086 ml 4568 ml Packed Cells 694 ml FFP 500 ml Output Urine Total 325 ml 350 ml 3875 ml # Voids 1 # Bowel Movements 0 Exam General: Patient awake alert in no acute distress HEENT: Membranes dry, conjunctiva pale Cardio: Regular rate Respiratory: CTA bilaterally Abdomen: No distention, positive bowel sounds, no noticeable tenderness Extremities: Bilateral lower extremities are wrapped in Richard wraps this patient states his sleeping; newly wrapped and did not remove wrap Neuro: Appears to be neurologically intact by sensation and cranial nerves Psych: Appropriate mood and affect Skin: No rashes noted or petechia IVs and Medications Medications Reviewed: Medications were reviewed in detail Lab and Diagnostics Result Diagram: 12/23/16 0557 12/23/16 0557 X-Rays, CTs and MRIs X-RAY CHEST ONE VIEW, PORTABLE 11/20/16 IMPRESSION: Small right pleural effusion with adjacent atelectasis. Please correlate clinically. Probable large hiatal hernia (this could be confirmed with upper GI series) and bibasilar atelectasis/interstitial disease. Scoliosis Dictated by: Kashif Angelo M.D. on 12/20/2016 at 20:14 Approved by: Kashif Angelo M.D. on 12/20/2016 at 20:16 Assessment & Plan Assessment/plan This 86-year-old with symptomatic and severe anemia which has been repleted with transfusion. 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 Patient is on warfarin for A. fib and this complicates the case and due diligence with a colonoscopy today prior to patient being discharged on warfarin again. Currently on aspirin is scheduled for mid afternoon, approximately 1530. Please's recommendations and procedure notes. Thank you for allowing us to participate in the care of this patient I have seen and examined the patient with the resident and agree with above. Update: Patient was to go for colonoscopy today, however, discussion with anesthesia and due to patient's heart failure the procedure was deferred until cardiac workup to be performed and cardiac status optimized by the medical service. Anesthesia wanted the resolution of CHF and Afib with RVR. In light of this, we recommend restarting the patient's warfarin and once this is therapeutic performing a red tag scan to evaluate bleeding. Patient is allowed to eat as tolerated. I have seen and examined the patient with the resident and agree with above. Resuscitation Status: CPR: Attempt Resuscitation Iain Crum DO December 23, 2016 09:53 Tashi Villa MD December 23, 2016 16:51
--- NOTE | 2016-12-23 11:23 | PCM.PNMED ---
Subjective Date of Service December 23, 2016 Subjective Patient is joint from this morning that she did find drinking him about that bothersome. He is to have good appetite like to eat shortly, understands the need for a colonoscopy later date rule out other sources of GI bleed. Review of benefits versus risks of continued anticoagulation therapy was reviewed with patient who confirmed she would like to continue warfarin at this time and understands the need to proceed with complete GI workup as result. As any acute pain or complaints is morning. Not noted any dark or tarry stools overnight. Stools essentially water at this time following the upper. Exam Vital Signs Vital Sign - Last Date Time Temp Pulse Resp B/P Pulse Ox O2 Delivery O2 Flow Rate FiO2 12/23/16 08:57 36.6 89 16 111/70 95 Room Air 12/22/16 16:27 2 Intake and Output 12/22/16 12/22/16 12/23/16 Cumulative From/Thru 15:00 23:00 07:00 12/20/16 18:46 - 12/23/16 05:08 Intake Total 550 ml 300 ml 1086 ml 6812 ml Output Total 325 ml 350 ml 3875 ml Balance 225 ml -50 ml 1086 ml 2937 ml Intake Oral 550 ml 100 ml 1050 ml IV Total 200 ml 1086 ml 4568 ml Packed Cells 694 ml FFP 500 ml Output Urine Total 325 ml 350 ml 3875 ml # Voids 1 # Bowel Movements 0 Exam General: Alert, Oriented X3, Cooperative, Mild Distress Mouth: Mucous Membrane Moist/Butters Cardiovascular: Irregular rhythm with regular rate. Abdomen: Non-tender, Non-distended Extremities: B/L Lower extremity edema, with calves freshly wrapped in UNaboots from yesterday Neurological: Grossly Neurologically Intact Skin; multiple ecchymosis and bruising on upper extremities from previous blood draws. IVs and Medications Medications Reviewed: Medications were reviewed in detail Lab and Diagnostics Result Diagram: 12/23/16 0557 12/23/16 0557 X-Rays, CTs and MRIs X-RAY CHEST ONE VIEW, PORTABLE 11/20/16 IMPRESSION: Small right pleural effusion with adjacent atelectasis. Please correlate clinically. Probable large hiatal hernia (this could be confirmed with upper GI series) and bibasilar atelectasis/interstitial disease. Scoliosis Dictated by: Kashif Angelo M.D. on 12/20/2016 at 20:14 Approved by: Kashif Angelo M.D. on 12/20/2016 at 20:16 Assessment & Plan Melissa Grijalva is an 86 year old female with Chronic Atrial fibrillation on warfarin, Hypertension, No's esophagitis who presents to [facility] emergency department after she was contacted her by her PCP for abnormal lab values, low Hgb 1. Acute GI bleeding. Present on admission Suspect possible Diverticular bleeding. Differential diagnosis includes Colon cancer, Vascular ectasias, Inflammatory bowel disease, Hemorrhoids, Anal fissure. History of No's esophagitis but no clinical evidence of Upper GI bleeding such as hematemesis. 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 - Protonix has been continued at this time a milligrams twice a day anticipate transition to oral formulation shortly . - Protonix drip was not started though this was GI plan, have now initiated Protonix 80 mg IV twice daily, given stable H&H in the setting of no PPI use overnight. - Given plan to initiate warfarin prior to discharge she has recommendation that patient also undergo lower endoscopy to rule out any other sources of GI bleeding . - Patient underwent bowel prep yesterday evening into this morning is now scheduled for colonoscopy later today . - We will continue intravenous fluids , anticipate advancing diet as tolerated following procedure . - Continue to appreciate GI consultation and recommendations . 2. Symptomatic anemia due to GI blood loss. Present on admission Chronic Iron deficiency anemia - 2 units packed RBC transfused from ED - monitor H/H, target to keep Hbg > 7, currently at goal following transfusion. Pt HDS. - H&H N overnight, lack of dark tarry stool supports cessation of GI bleeding. Stability will be helpful nonetheless toward identify location of GI bleed, and support this is 3 Acute Kidney injury. Present on admission Likely due to pre renal azotemia due to hypovolemia - avoid nephrotoxic insults - holding diuretics - monitor urine output - avoid NSAID - Currently resolved 4 Lymphedema and venous stasis problems Presumed stable - wound care consult requested and pending - keep leg elevated 5 Hypertension currently stable with no evidence of volume loss - holding Metoprolol tonight in the event patient becomes hypotensive 6 Atrial fibrillation on Coumadin Currently rate controlled - continue monitor on telemetry - holding Coumadin, dissipate restarting his rise is even following colonoscopy. Hemodynamically stable. 7. Hyponatremia - Patient's been transitioned to half-normal saline while nothing by mouth - Conditions mild in nature we will continue to monitor. Pain Evaluation: Adequate Pain Control GI Prophylaxis: Proton Pump Inhibitor Resuscitation Status: CPR: Attempt Resuscitation Time spent 25 minutes Rickey Lopes DO December 23, 2016 11:23
[2016-12-23] MEDS: cefTRIAXone Inj 1,000 MG in Dextrose 5% Minibag Plus 50 ML IV SCH (12:36)
--- NOTE | 2016-12-23 14:36 | NUR ---
off unit Patient of unit to endo. no s/s of distress
--- NOTE | 2016-12-23 14:38 | NUR ---
NUTRITION ASSESSMENT: ASSESS: 86 YO female admitted for GI bleed and anemia. Pt is having a colonoscopy today and then hopefully diet will be able to be advanced per MD. PMHx: A-fib, HTN, waller's esophagitis, Psoriasis, hyperlipidemia, mirtal and tricuspid regurgitation, hiatal hernia, diverticulosis, endometrial cancer s/p hysterectomy, lymphedema, osteopenia. LABS: Reviewed. Alb 2.6. MEDS: Reviewed. GI: S/p colonoscopy prep 12/22. CURRENT WT: 69.6 kg. DIET: Clear liquids. PO 0-25% x 3 days. EST. NEEDS: 1067-7848 kcals (25-30 kcals/kg BW), 70-105 g protein (1.0-1.5 g/kg BW) NUTRITION DIAGNOSIS: 1.) Inadequate oral intake related to decreased ability to consume sufficient energy as evidenced by current PO intake of 0-25% of meals x 3 days. NUTRITION INTERVENTION: 1.) Will add ensure clear while pt is on clear liquid diet. 2.) Will send ensure once diet is advanced. MONITOR / EVAL: Diet advancement / tolerance, labs, nutritional status. Follow per moderate nutritional risk guidelines.
--- NOTE | 2016-12-23 15:33 | NUR ---
Back on unit Colonoscopy was not preformed. Endo doc felt that she needed an echo and cardiac consult.
--- NOTE | 2016-12-23 16:28 | NUR ---
tachycardia pts HR increased at 1545 to 120-130s with spikes into 160s. Pt is sitting bedside and is asymptomatic. Db hospitalist. Addendum: 12/23/16 at 1754 by DAYRON LEW RN administered 5mg Lopressor IVP. Reassessed patient and her BP dropped to 88/55 and HR 110 to 120. MD did not want to give any more IV Rx and stated that pt can have evening PO lopressor. Pt is in bed and asymptomatic. Continue to monitor
[2016-12-23] MEDS ORDERED: MeTOProlol 1 mg/mL 5 mL Inj IVPUSH ONE (17:25)
[2016-12-23] MEDS ORDERED: 0.9% Sodium Chloride 500 ML IV ONE (21:25)
[2016-12-23] MEDS: 0.9% Sodium Chloride 1,000 ML IV SCH (21:31)
[2016-12-24] VITALS (13 sets, daily range): BP systolic 106–140; BP diastolic 71–95; PULSE 96–146; RESP 18–22; O2SAT 90–99
--- NOTE | 2016-12-24 00:40 | NUR ---
Tachycardia Pt's HR in the beginning of shift was between 110s-140s at rest; up to 160s with activity (Afib).Pt asymptomatic; denies chest pain or any discomfort; not diaphoretic. BP @ HS was 105/73. Metoprolol given. 1person max assist to BSC; had green liquid stool. no signs of bleeding. Dr. Jovel was notified and rec'd an order for a bolus and IVF. BP was 98/62 after the bolus. HR is down to 80s-low 100s at this time. will continue to monitor pt's HR.
--- NOTE | 2016-12-24 02:50 | NUR ---
daughter's concern Pt's daughter, Faustina Clemens (cell phone # [phone]) talked to this RN and voiced out her concern about pt's condition and living situation. She would like pt to be living in a SNF but pt's is not supportive of that. Note was left for and TYRA in AM. will pass on to day RN. alternate phone number for Faustina: Daniel Clemens () [phone]
[2016-12-24 06:26] LABS: BASOPHILS % (AUTO) 0.1 % (0-3); EOSINOPHILS % (AUTO) 2.6 % (0-5); MONOCYTES % (AUTO) 12.2 % (4-12); Mean Corpuscular Volume 77.9 fL (81-100); NEUTROPHILS % (AUTO) 71.2 % (40-74); Platelet Count 194 bil/L (150-400)
[2016-12-24 06:49] LABS: INR 1.52 ratio
--- NOTE | 2016-12-24 07:12 | PCM.PHAPRO ---
Progress Symptomatic/fatigue anemia Date December 24-December INR 1.36 1.52 INR change 0.16 Warf Dose 5 mg 5 MG Ernesto Chin Pharm.D December 24, 2016 07:12
[2016-12-24] MEDS: MeTOProlol XL 50 mg ER24 Tablet PO SCH ×2 (07:35→21:16)
[2016-12-24] MEDS: 0.9% Sodium Chloride 1,000 ML IV SCH (07:35)
[2016-12-24] MEDS: Pantoprazole 4 mg/mL 10 mL Inj IVPUSH SCH (07:36)
--- NOTE | 2016-12-24 08:03 | PCM.PNMED ---
Subjective Date of Service December 24, 2016 Subjective Pt says her sleep was interuppted by nurses (she had persistent tachycardia, required metoprolol IV), but otherwise she is feeling well. Happy to be eating again, asking about going home. No pains, denies black or tarry stools. She is weaker than her baseline, but otherwise feels well. Exam Vital Signs Vital Sign - Last Date Time Temp Pulse Resp B/P Pulse Ox O2 Delivery O2 Flow Rate FiO2 12/24/16 05:44 115 12/24/16 04:24 36.8 18 110/74 94 Room Air 12/22/16 16:27 2 Intake and Output 12/23/16 12/23/16 12/24/16 Cumulative From/Thru 15:00 23:00 07:00 12/20/16 18:46 - 12/24/16 05:24 Intake Total 4000 ml 1110 ml 100 ml 10129 ml Output Total 4250 ml 400 ml 225 ml 8750 ml Balance -250 ml 710 ml -125 ml 3272 ml Intake Oral 4000 ml 400 ml 100 ml 5550 ml IV Total 710 ml 5278 ml TPN/PPN 0 ml 0 ml Packed Cells 694 ml FFP 500 ml Output Urine Total 250 ml 400 ml 150 ml 4675 ml Stool Total 75 ml 75 ml Urine/Stool Mix 4000 ml 4000 ml # Voids 2 2 5 # Bowel Movements 0 0 Exam General: Alert, Oriented X3, Cooperative,No acute distress Mouth: Mucous Membrane Moist/Arley Cardiovascular: Irregular rhythm with rate of ~100bpm on my exam. . Abdomen: Non-tender, Non-distended Extremities: B/L Lower extremity edema above unaboots, and also 1(+)pitting edema/third-spacing of arms. Good pulses in upper/low extremites, with calves wrapped in UNaboots Neurological: Grossly Neurologically Intact Skin; multiple ecchymosis and bruising on upper extremities from previous blood draws. IVs and Medications Medications Reviewed: Medications were reviewed in detail Lab and Diagnostics Result Diagram: 12/24/16 0540 12/24/16 0540 X-Rays, CTs and MRIs X-RAY CHEST ONE VIEW, PORTABLE 11/20/16 IMPRESSION: Small right pleural effusion with adjacent atelectasis. Please correlate clinically. Probable large hiatal hernia (this could be confirmed with upper GI series) and bibasilar atelectasis/interstitial disease. Scoliosis Dictated by: Kashif Angelo M.D. on 12/20/2016 at 20:14 Approved by: Kashif Angelo M.D. on 12/20/2016 at 20:16 Assessment & Plan 1. Acute GI bleeding. Present on admission Suspect possible Diverticular bleeding. Differential diagnosis includes Colon cancer, Vascular ectasias, Inflammatory bowel disease, Hemorrhoids, Anal fissure. History of No's esophagitis but no clinical evidence of Upper GI bleeding such as hematemesis. 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 - Protonix has been continued at this time a milligrams twice a day anticipate transition to oral formulation shortly . - Protonix drip was not started though this was GI plan, have now initiated Protonix 80 mg IV twice daily, given stable H&H in the setting of no PPI use overnight. Now continuing Protonic 40mg daily. - Given plan to initiate warfarin prior to discharge she has recommendation that patient also undergo lower endoscopy to rule out any other sources of GI bleeding . - Patient underwent bowel prep and plan for colonoscopy yesterday, but this was canceled due to concern for cardiac function. - Now restarting warfarin, diet, observing for signs of recurrent bleeding - Continue to appreciate GI consultation and recommendations . - Consider tagged RBC scan once therapeutic in anticipation of discharge home. 2. Symptomatic anemia due to GI blood loss. Present on admission Chronic Iron deficiency anemia - 2 units packed RBC transfused from ED - monitor H/H, target to keep Hbg > 7, currently at goal following transfusion. Pt HDS. - H&H N overnight, lack of dark tarry stool supports cessation of GI bleeding. Stability will be helpful nonetheless toward identify location of GI bleed, and support this is - Continue to observe while titrating coumadin/INR 3 Acute Kidney injury. Present on admission Likely due to pre renal azotemia due to hypovolemia - avoid nephrotoxic insults - holding diuretics - monitor urine output - avoid NSAID - Currently resolved 4 Lymphedema and venous stasis problems Presumed stable - wound care consult requested and pending - keep leg elevated 5 Hypertension currently stable with no evidence of volume loss - holding Metoprolol tonight in the event patient becomes hypotensive 6 Atrial fibrillation on Coumadin Rate has been elevated, responds to metroprolol. - Cause inclear, possible volume overload though boarderline BPs and elevated pulse suggest dehydration, 3rd spacing more consistent with vomume excess. - Resp function stable. - continue monitor on telemetry - FU echocardiogram for further assessment of volume status and heart function 7. Hyponatremia - Now normalized - Conditions mild in nature we will continue to monitor. Pain Evaluation: Adequate Pain Control GI Prophylaxis: Proton Pump Inhibitor Resuscitation Status: CPR: Attempt Resuscitation Time spent 30 minutes Rickey Lopes DO December 24, 2016 08:03
--- NOTE | 2016-12-24 09:10 | NUR ---
Tele Tele called to report HR in 140's-150's. Pt currently in bed resting, no exertion. Reported VS to provider 128/95, 92% sats on RA, RR 22, HR irregular 128. Per doctor repeat VS in 15mins. Repeat vitals- 118/92, HR 148. Pt up to restroom, had some increased SOB, placed on 1L O2 sats 95%. Will notify provider of HR and VS.
[2016-12-24] MEDS ORDERED: Diltiazem 5 mg/mL 5 mL Inj IVPUSH ONE ×2 (09:20→17:40)
[2016-12-24] MEDS: cefTRIAXone Inj 1,000 MG in Dextrose 5% Minibag Plus 50 ML IV SCH (10:22)
--- NOTE | 2016-12-24 10:26 | PCM.PNMED ---
Subjective Date of Service December 24, 2016 Subjective Tolerated diet and is doing well. No blood in the stools or black stools. Exam Vital Signs Vital Sign - Last Date Time Temp Pulse Resp B/P Pulse Ox O2 Delivery O2 Flow Rate FiO2 12/24/16 09:14 144 12/24/16 08:33 36.7 22 128/95 91 Room Air 12/22/16 16:27 2 Intake and Output 12/23/16 12/23/16 12/24/16 Cumulative From/Thru 15:00 23:00 07:00 12/20/16 18:46 - 12/24/16 05:24 Intake Total 4000 ml 1110 ml 100 ml 76141 ml Output Total 4250 ml 400 ml 225 ml 8750 ml Balance -250 ml 710 ml -125 ml 3272 ml Intake Oral 4000 ml 400 ml 100 ml 5550 ml IV Total 710 ml 5278 ml TPN/PPN 0 ml 0 ml Packed Cells 694 ml FFP 500 ml Output Urine Total 250 ml 400 ml 150 ml 4675 ml Stool Total 75 ml 75 ml Urine/Stool Mix 4000 ml 4000 ml # Voids 2 2 5 # Bowel Movements 0 0 Exam Patient is alert oriented comfortable Head and neck no icterus Lungs clear Heart a vascular irregular tachycardia normal S1 and S2 Abdomen soft nontender and nondistended with normoactive bowel sounds Skin shows no jaundice Lab and Diagnostics Result Diagram: 12/24/16 0540 12/24/16 0540 X-Rays, CTs and MRIs X-RAY CHEST ONE VIEW, PORTABLE 11/20/16 IMPRESSION: Small right pleural effusion with adjacent atelectasis. Please correlate clinically. Probable large hiatal hernia (this could be confirmed with upper GI series) and bibasilar atelectasis/interstitial disease. Scoliosis Dictated by: Kashif Angelo M.D. on 12/20/2016 at 20:14 Approved by: Kashif Angelo M.D. on 12/20/2016 at 20:16 Assessment & Plan This 86-year-old with symptomatic and severe anemia which has been repleted with transfusion. 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 However there was no smoking gun. Under the circumstances, we cannot completely rule out lower GI source. Patient is on warfarin for A. fib and this complicates the case and due diligence with a colonoscopy today prior to patient being discharged on warfarin again. Currently on aspirin is scheduled for mid afternoon, approximately 1530. Please 's recommendations and procedure notes. Patient was to go for colonoscopy yesterday, however, discussion with anesthesia and due to patient's heart failure the procedure was deferred until cardiac workup to be performed and optimization. In light of this, we recommend restarting the patient's warfarin and once this is therapeutic performing a red tag scan to evaluate bleeding. Other options are to perform EKG and nuclear medicine cardiac stress test. Anesthesiology recommends these test prior to proceeding with further sedation. If red tag scan is negative, we could potentially do this as an outpatient until her cardiac status optimized by rate controlling her and resolution of heart failure. Anesthesiology strongly recommends cardiac consult. I will defer this issue to the primary hospitalist service. I think she could switch to Protonix 40 mg once a day orally. Thus far hemoglobin remained stable at 9.6 10.5 9.2. INR 1.5. GI Prophylaxis: Proton Pump Inhibitor Resuscitation Status: CPR: Attempt Resuscitation Tashi Villa MD December 24, 2016 10:26
--- NOTE | 2016-12-24 11:38 | NUR ---
[facility] signed
--- NOTE | 2016-12-24 12:20 | NUR ---
Cardizem Push Patient HR was A-fib 130's- 150's sustained. Patient was administered scheduled PO Metoprolol with no effect. MD was notified of patient HR and BP. MD ordered Cardizem 5mg IV push. HR lowered to mid 80's to low 100's. Continuing to monitor HR and BP.
--- NOTE | 2016-12-24 12:27 | DRSVH ---
PROCEDURE: X-RAY CHEST ONE VIEW, PORTABLE ([id number]) INDICATIONS: sob TECHNIQUE: One view of the chest was acquired. COMPARISON: [facility], CR, XR CHEST 1VW (PORTABLE), 12/20/2016, 19:27. FINDINGS: Surgical changes and devices: None. Lungs and pleura: Lung volumes are low. Bilateral basilar radiopacities and pleural effusions are pre sent, similar in extent to the study dated 12/20/16. Mediastinum: Mediastinal contours appear normal. Heart size is normal. There is a large hiatal her leeroy which is gas and fluid filled. Bones and chest wall: No suspicious bony lesions. Overlying soft tissues appear unremarkable. IMPRESSION: Bilateral basilar radiopacities and pleural effusions unchanged from the prior study date d 12/20/16. Dictated by: Love Tinoco M.D. on 12/24/2016 at 12:25 Approved by: Love Tinoco M.D. on 12/24/2016 at 12:26
[2016-12-24] MEDS: Furosemide 10 mg/mL 2 mL Inj IVPUSH SCH (13:19)
--- NOTE | 2016-12-24 14:11 | NUR ---
Oxygen Pt oxygen dipping below 90's. Oxygen sats of 88%, and pt de-sats with exertion/movement. Placed NC on with 2Liters O2. Sats immediately improved to 97-98%. Monitored, and titrated to 1L, while resting in bed in semi-fowlers. Pt oxygen currently 97% on 1L, denies CP, denies SOB. Call light at bedside.
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
--- NOTE | 2016-12-24 15:27 | NUR ---
Oxygen Monitored pt oxygen. At rest pt is stable in 93-94% on RA. However, with any exertion oxygen decreases to 85's-88's%. Pt placed on NC prn for supplemental oxygen with exertion only. With exertion pt requires supplemental oxygen 1-2L depending on the length of activity/movement. Once pt is back in bed resting, oxygen improves and no longer requires it. Will continue to be proactive with prn oxygen with exertion only. Provider aware. Call light at bedside, pt resting comfortably with at bedside. Denies CP and SOB.
--- NOTE | 2016-12-24 18:21 | NUR ---
A-FIB Patient HR increased to 120's-140's. MD aware. MD ordered 5mg Cardizem IV push. Medication was administered. HR decreased slightly to low 100's- 120's. will continue to monitor.
--- NOTE | 2016-12-24 18:41 | NUR ---
Shift Pt A&O, pleasant and cooperative with care. Pt can be forgetful at times. She is currently anxiously awaiting DC, would like to be notified in the morning of her plans for the day. Number is on white board. Pt is on RA stable at 93%, however she de-sats to 85-88% with exertion/movement. Utilizing supplemental oxygen for these times to [facility] [place] [place] on 1-2L PRN. Tele monitor reports 110's to 140's throughout the day. Provider aware and medications given twice during shift via IV. Will continue to monitor HR and O2. Pt on continuous pulse ox. Edema has improved after lasix was given this morning. VSS. Pt resting currently with calllight within reach.
[2016-12-25] VITALS (10 sets, daily range): BP systolic 104–140; BP diastolic 68–86; PULSE 74–112; RESP 18–20; O2SAT 91–97
--- NOTE | 2016-12-25 03:27 | NUR ---
PT ACTIVITY Pt is a 1-2 person assist w/ FWW up to BSC. Pt is generally weak. Pt placed 2L oxygen during activity, as pts oxygen saturations decrease w/ activity. Pt recovers fairly quickly. Pt given evening dose of metoprolol. Pt remains in A.fib, HR 70-90s at rest, pts HR up to 140s w/ activity. Continue to monitor. Call light in reach. Bed alarm on. Intentional rounding.
[2016-12-25] MEDS: Furosemide 10 mg/mL 2 mL Inj IVPUSH SCH ×2 (07:36→08:08)
[2016-12-25] MEDS: Pantoprazole 40 mg ER24 Tablet PO SCH (07:36)
[2016-12-25] MEDS: MeTOProlol XL 50 mg ER24 Tablet PO SCH ×2 (07:36→19:47)
[2016-12-25] MEDS ORDERED: Furosemide 10 mg/mL 4 mL Inj IVPUSH ONE (07:40)
[2016-12-25] MEDS ORDERED: Furosemide 10 mg/mL 2 mL Inj IVPUSH ONE (08:10)
[2016-12-25 08:33] LABS: BASOPHILS % (AUTO) 0.2 % (0-3); EOSINOPHILS % (AUTO) 4.2 % (0-5); MONOCYTES % (AUTO) 11.3 % (4-12); Mean Corpuscular Hemoglobin 24.2 pg (27.0-35.0); Mean Corpuscular Volume 78.2 fL (81-100); NEUTROPHILS % (AUTO) 68.9 % (40-74); Platelet Count 186 bil/L (150-400)
[2016-12-25 08:41] LABS: INR 2.08 ratio
--- NOTE | 2016-12-25 08:57 | PCM.PHAPRO ---
Progress Symptomatic/fatigue anemia INR 1.36 1.52 2.08 INR change 0.16 0.56 Warf Dose 5 mg 5 MG 4 MG Ernesto Chin Pharm.D December 25, 2016 08:57
--- NOTE | 2016-12-25 10:11 | PCM.PNMED ---
Subjective Date of Service December 25, 2016 Subjective Patient did well overnight. Tolerating advanced diet. Heart rate is still tachycardic and she is to undergo cardiac workup prior to having colonoscopy. At this time patient was restarted on warfarin and possible plan for red tag scan for evaluation of bleeding. If red tag scan is negative patient can undergo colonoscopy as outpatient. Exam Vital Signs Vital Sign - Last Date Time Temp Pulse Resp B/P Pulse Ox O2 Delivery O2 Flow Rate FiO2 12/25/16 09:17 36.7 76 20 121/73 93 Room Air 12/24/16 20:58 2.00 Intake and Output 12/24/16 12/24/16 12/25/16 Cumulative From/Thru 15:00 23:00 07:00 12/20/16 18:46 - 12/25/16 04:52 Intake Total 558 ml 200 ml 64102 ml Output Total 1700 ml 200 ml 24232 ml Balance -1142 ml 0 ml 2130 ml Intake Oral 400 ml 200 ml 6150 ml IV Total 158 ml 5436 ml TPN/PPN 0 ml Packed Cells 694 ml FFP 500 ml Output Urine Total 1700 ml 200 ml 6575 ml Stool Total 75 ml Urine/Stool Mix 4000 ml # Voids 1 6 # Bowel Movements 0 0 Exam General: Patient awake alert in no acute distress HEENT: Membranes dry, conjunctiva pale Cardio: Regular rate tachy Respiratory: CTA bilaterally with crackles in the bases. Abdomen: No distention, positive bowel sounds, no noticeable tenderness Extremities: Bilateral lower extremities are wrapped in Richard wraps this patient states his sleeping; newly wrapped and did not remove wrap Neuro: Appears to be neurologically intact by sensation and cranial nerves Psych: Appropriate mood and affect Skin: No rashes noted or petechia IVs and Medications Medications Reviewed: Medications were reviewed in detail Lab and Diagnostics Result Diagram: 12/25/16 0808 12/25/16 0808 X-Rays, CTs and MRIs X-RAY CHEST ONE VIEW, PORTABLE 11/20/16 IMPRESSION: Small right pleural effusion with adjacent atelectasis. Please correlate clinically. Probable large hiatal hernia (this could be confirmed with upper GI series) and bibasilar atelectasis/interstitial disease. Scoliosis Dictated by: Kashif Angelo M.D. on 12/20/2016 at 20:14 Approved by: Kashif Angelo M.D. on 12/20/2016 at 20:16 Assessment & Plan This 86-year-old with symptomatic and severe anemia which has been repleted with transfusion. 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 However there was no smoking gun. Under the circumstances, we cannot completely rule out lower GI source. Patient is on warfarin for A. fib and this complicates the case and due diligence with a colonoscopy today prior to patient being discharged on warfarin again. Currently on aspirin is scheduled for mid afternoon, approximately 1530. Please see recommendations and procedure notes. Patient will need a full cardiac workup prior to undergoing colonoscopy per anesthesia. If red tag scan is negative, we could do the colonoscopy as an outpatient. This is probably more likely as the patient still tachycardic, although swelling in her legs has decreased will defer this issue to the primary hospitalist service. I think she could switch to Protonix 40 mg once a day orally. Hemoglobin has remained stable. As of Monday, anesthesia thought the patient A fib has to be controlled and cardiac status improves (resolution of CHF) by cardiology. She is still in A fib and tackycardia and still has some crackles at the bases of her lung this am. Thank you for allowing us to see this patient. GI Prophylaxis: Proton Pump Inhibitor Resuscitation Status: CPR: Attempt Resuscitation Iain Crum DO December 25, 2016 10:11 Tashi Villa MD December 25, 2016 14:04
[2016-12-25] MEDS: cefTRIAXone Inj 1,000 MG in Dextrose 5% Minibag Plus 50 ML IV SCH (10:26)
--- NOTE | 2016-12-25 10:27 | NUR ---
Evaluation completed. Please go to "Notes" then click on "Assessments and Notes" (bottom left corner of screen). Then select appropriate discipline tab on top of screen.
--- NOTE | 2016-12-25 11:10 | PCM.PNMED ---
Subjective Date of Service December 25, 2016 Subjective Patient notes continuing to feel slowly better but certainly not at her baseline. Eating well, denies any nausea. Denies any abdominal pain or dark or tarry stools. She became repeatedly tachycardic through the day yesterday and overnight with rising but her pulse has been downward trending and nearly normalized. She endorses urinating much yesterday and now again this morning with doses of Lasix but this is been otherwise well tolerated. Breathing effort overall has improved. Exam Vital Signs Vital Sign - Last Date Time Temp Pulse Resp B/P Pulse Ox O2 Delivery O2 Flow Rate FiO2 12/25/16 10:23 112 12/25/16 09:17 36.7 20 121/73 93 Room Air 12/24/16 20:58 2.00 Intake and Output 12/24/16 12/24/16 12/25/16 Cumulative From/Thru 15:00 23:00 07:00 12/20/16 18:46 - 12/25/16 04:52 Intake Total 558 ml 200 ml 09766 ml Output Total 1700 ml 200 ml 48816 ml Balance -1142 ml 0 ml 2130 ml Intake Oral 400 ml 200 ml 6150 ml IV Total 158 ml 5436 ml TPN/PPN 0 ml Packed Cells 694 ml FFP 500 ml Output Urine Total 1700 ml 200 ml 6575 ml Stool Total 75 ml Urine/Stool Mix 4000 ml # Voids 1 6 # Bowel Movements 0 0 Exam General: Alert, Oriented X3, Cooperative,No acute distress Mouth: Mucous Membrane Moist/[place] Cardiovascular: Irregular rhythm with rate of ~100bpm on my exam. . Abdomen: Non-tender, Non-distended Extremities: B/L Lower extremity edema above unaboots, and also tracep itting edema/third-spacing of arms, improved from one day prior. Good pulses in upper/ low extremites, with calves wrapped in UNaboots Neurological: Grossly Neurologically Intact Skin; multiple ecchymosis and bruising on upper extremities from previous blood draws. IVs and Medications Medications Reviewed: Medications were reviewed in detail Lab and Diagnostics Result Diagram: 12/25/16 0808 12/25/16 0808 X-Rays, CTs and MRIs X-RAY CHEST ONE VIEW, PORTABLE 11/20/16 IMPRESSION: Small right pleural effusion with adjacent atelectasis. Please correlate clinically. Probable large hiatal hernia (this could be confirmed with upper GI series) and bibasilar atelectasis/interstitial disease. Scoliosis Dictated by: Kashif Angelo M.D. on 12/20/2016 at 20:14 Approved by: Kashif Angelo M.D. on 12/20/2016 at 20:16 Assessment & Plan 1. Acute GI bleeding. Present on admission Suspect possible Diverticular bleeding. Differential diagnosis includes Colon cancer, Vascular ectasias, Inflammatory bowel disease, Hemorrhoids, Anal fissure. History of No's esophagitis but no clinical evidence of Upper GI bleeding such as hematemesis. 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 - Protonix has been continued at this time a milligrams twice a day anticipate transition to oral formulation shortly . - Protonix drip was not started though this was GI plan, have now initiated Protonix 80 mg IV twice daily, given stable H&H in the setting of no PPI use overnight. Now continuing Protonic 40mg daily. - Given plan to initiate warfarin prior to discharge she has recommendation that patient also undergo lower endoscopy to rule out any other sources of GI bleeding . - Patient underwent bowel prep and plan for colonoscopy yesterday, but this was canceled due to concern for cardiac function. - Now restarting warfarin, diet, observing for signs of recurrent bleeding - Continue to appreciate GI consultation and recommendations . - Consider tagged RBC scan once therapeutic in anticipation of discharge home. 2. Symptomatic anemia due to GI blood loss. Present on admission Chronic Iron deficiency anemia - 2 units packed RBC transfused from ED - monitor H/H, target to keep Hbg > 7, currently at goal following transfusion. Pt HDS. - H&H N overnight, lack of dark tarry stool supports cessation of GI bleeding. Stability will be helpful nonetheless toward identify location of GI bleed, and support this is - Continue to observe while titrating coumadin/INR - H&H downtrending overnight though in the setting of volume overload dilution may be a component, we will continue to trend with diuresis. 3 Acute Kidney injury. Present on admission Likely due to pre renal azotemia due to hypovolemia - avoid nephrotoxic insults - We restarted diuretics due to apparent volume overload and exacerbation of CHF. - monitor urine output - avoid NSAID - Currently resolved 4 Lymphedema and venous stasis problems Presumed stable - wound care consult requested and pending - keep leg elevated 5 Hypertension currently stable with no evidence of volume loss - holding Metoprolol tonight in the event patient becomes hypotensive 6 Atrial fibrillation on Coumadin Rate has been elevated, responds to metroprolol. - Cause inclear, possible volume overload though boarderline BPs and elevated pulse suggest dehydration, 3rd spacing more consistent with vomume excess. - Resp function stable. - continue monitor on telemetry - FU echocardiogram for further assessment of volume status and heart function - 40 mg Lasix today via IV, will resume 20 mg starting tomorrow continued improvement. . 7. Hyponatremia - Now normalized - Conditions mild in nature we will continue to monitor. 8 . CHF exacerbation - As noted above patient demonstrated evidence of volume overload, given heart strain increased work of breathing and radiographic evidence of pulmonary edema - As responded well to rate control and diuresis with Lasix. - We will continue to monitor cardiac function, or allergy consult was placed in pending in addition echocardiogram as noted above. 9 urinary tract infection - Noted on urine studies though asymptomatic - Currently treating Rocephin will transition oral anabolic on discharge is 5 day treatment course is not completely prior to this. Disposition: Anticipate 1-2 days to medically stabilize, given no evidence of recurrent GI bleed once therapeutic on warfarin. Additionally will require stabilized heart rate and cardiac functioning. Given PT evaluation custodial facility versus home discharge appears indicated, will reassess patient' s status at time of discharge to determine this. Pain Evaluation: Adequate Pain Control GI Prophylaxis: Proton Pump Inhibitor Resuscitation Status: CPR: Attempt Resuscitation Time spent 30 minutes Rickey Lopes DO December 25, 2016 11:10
--- NOTE | 2016-12-25 14:30 | NUR ---
Heart Rate Patient continues to have A-fib, but rate is lower today at 80's-low 100's with spikes into the 140's with activity. Patient oxygen saturations have dipped down to 82% on RA with exertion and /or speaking. Patient has been placed on 2L of supplemental oxygen during exertion and weaned back to room air at rest.
--- NOTE | 2016-12-25 15:00 | NUR ---
TYRA - Continued Discharge Planning Data: Pt is on day 5 of hospitalization for GI bleed, anemia. EMR reviewed. Pt discussed in morning rounds and is not medically ready to discharge, will likely be here at least 2 more days, possibly go to SNF. PT evaluated pt and is recommending SNF. SW met with pt and in room to choice for SNF. Pt would prefer [facility]- first choice and [facility] -second choice. SW will send referrals to both facilities. TYRA contacted [facility] who are able to take pt's insurance, [employer]. TYRA faxed clinicals to [facility] [phone] and will send face to face and discharge summary/orders when pt is discharged if she discharges home. TYRA contacted daughter Krystle Clemens [phone] to update, stated that SNF recommendation could change so parallel planning is indicated. SW will continue to follow. Assessment: Pt who would benefit from SNF vs PT/RN services. Plan: Pt to discharge to SNF vs home with RN/PT. TYRA faxed clinicals to [facility]. Face to face in folder to be signed. SW will fax discharge summary and orders when pt discharges. Pt stated SNF preferences as [facility] first and [facility] second. TYRA will send referrals Tuesday 12/26. Will continue to follow for needs. ANTONIO Buchanan
[2016-12-26] VITALS (8 sets, daily range): BP systolic 104–135; BP diastolic 69–87; PULSE 79–154; RESP 18–20; O2SAT 93–100
[2016-12-26 06:06] LABS: BASOPHILS % (AUTO) 0.2 % (0-3); EOSINOPHILS % (AUTO) 3.5 % (0-5); MONOCYTES % (AUTO) 10.4 % (4-12); Mean Corpuscular Volume 78.5 fL (81-100); NEUTROPHILS % (AUTO) 72.1 % (40-74); Platelet Count 166 bil/L (150-400)
[2016-12-26 06:35] LABS: INR 2.4 ratio
--- NOTE | 2016-12-26 06:37 | NUR ---
Heart Rate Patients heart rate 140s's with exertion. Patient appeared SOB and was placed on 2L via NC while ambulating. CPOX in place. 02 maintained above 90%. Patients HR did not sustain and was 80-100's Afib at rest. Will continue to monitor.
[2016-12-26] MEDS ORDERED: KCl 40 mEq/D5W 500 mL 40 MEQ in IV Premix 1 EACH IV ONE (07:30)
--- NOTE | 2016-12-26 09:08 | NUR ---
Gave access and faxed facesheet to [facility] [employer] Addendum: 12/26/16 at 1356 by ANDRE FARNSWORTH CM Gave access and faxed facesheet to [facility] and faxed referral to [facility]. Patient has [employer]anya and barrier is authorization at this time. Updated [employer]
[2016-12-26] MEDS: MeTOProlol XL 50 mg ER24 Tablet PO SCH ×2 (10:04→20:41)
[2016-12-26] MEDS: Pantoprazole 40 mg ER24 Tablet PO SCH (10:04)
[2016-12-26] MEDS: Furosemide 10 mg/mL 2 mL Inj IVPUSH SCH (10:04)
[2016-12-26] MEDS: cefTRIAXone Inj 1,000 MG in Dextrose 5% Minibag Plus 50 ML IV SCH (10:05)
--- NOTE | 2016-12-26 10:38 | PCM.PNMED ---
Subjective Date of Service December 26, 2016 Subjective GI progress note Overnight the patient did well. No pain, dizziness, nausea, vomiting, diarrhea , hematochezia/melena, hematemesis. Patient's INR is now therapeutic and tagged red cell scan was previously recommended and we await those results today. Exam Vital Signs Vital Sign - Last Date Time Temp Pulse Resp B/P Pulse Ox O2 Delivery O2 Flow Rate FiO2 12/26/16 09:41 98 12/26/16 05:28 36.8 18 130/86 96 Room Air 12/25/16 17:39 1.00 Intake and Output 12/25/16 12/25/16 12/26/16 Cumulative From/Thru 15:00 23:00 07:00 12/20/16 18:46 - 12/26/16 05:28 Intake Total 55 ml 1496 ml 200 ml 78946 ml Output Total 700 ml 12148 ml Balance 55 ml 796 ml 200 ml 3181 ml Intake Oral 1496 ml 200 ml 7846 ml IV Total 55 ml 5491 ml TPN/PPN 0 ml Packed Cells 694 ml FFP 500 ml Output Urine Total 700 ml 7275 ml Stool Total 75 ml Urine/Stool Mix 4000 ml # Voids 3 2 11 # Bowel Movements 1 1 Exam General: Patient awake alert in no acute distress HEENT: Membranes dry, conjunctiva pale Cardio: Regular rate tachy Respiratory: CTA bilaterally with crackles in the bases. Abdomen: No distention, positive bowel sounds, no noticeable tenderness Extremities: Bilateral lower extremities are wrapped in Richard wraps this patient states his sleeping; newly wrapped and did not remove wrap Neuro: Appears to be neurologically intact by sensation and cranial nerves Psych: Appropriate mood and affect Skin: No rashes noted or petechia IVs and Medications Medications Reviewed: Medications were reviewed in detail Lab and Diagnostics Result Diagram: 12/26/1645 12/26/1645 X-Rays, CTs and MRIs X-RAY CHEST ONE VIEW, PORTABLE 11/20/16 IMPRESSION: Small right pleural effusion with adjacent atelectasis. Please correlate clinically. Probable large hiatal hernia (this could be confirmed with upper GI series) and bibasilar atelectasis/interstitial disease. Scoliosis Dictated by: Kashif Angelo M.D. on 12/20/2016 at 20:14 Approved by: Kashif Angelo M.D. 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 Patient is on warfarin and this was held on admission and was going to be held until after colonoscopy. However anesthesia did not feel the patient was medically optimized including cardiac assessment as colonoscopy has been cut off. Patient 's INR is now back in the therapeutic range. With the patient in range she can now undergo a red tag scan to evaluate for ongoing bleeding. We await the results of the scan and if it is negative patient may be discharged today. If it is positive, however, colonoscopy should be performed prior to the patient's discharge. Should the patient be discharged today recommend cardiology referral with cardiac stress test and echo. Patient also have to be optimized for her diastolic heart failure. Patient may be rescheduled for follow-up within 2 weeks with gastroenterology. Thank you for allowing us participate in the care of this patient. I saw and examined this patient with the resident. Agree with the above. GI Prophylaxis: Proton Pump Inhibitor Resuscitation Status: CPR: Attempt Resuscitation Iain Crum DO December 26, 2016 10:38 Tashi Villa MD January 03, 2017 20:07
--- NOTE | 2016-12-26 13:59 | NUR ---
SW - Continued Discharge Planning Data: Pt is on day 5 of hospitalization for GI bleed, anemia. EMR reviewed. Pt discussed in morning rounds and is medically ready to discharge. PT evaluated pt and is recommending SNF. UR specialist sent referrals to [facility] and [facility] and pt's insurance [employer] will not cover. The only SNF that will be covered by her insurance is [facility] and UR Specialist sent referral. SW met with pt at bedside to update her. Pt has hesitant but agreeable to going to [facility]. "I need to go somewhere". SW agreed to contact daughter Krystle Clemens [phone] to update her. SW will continue to follow. Assessment: Pt who would benefit from SNF. Plan: Pt likely to discharge to [facility] SNF pending acceptance and insurance authorization. SW Will continue to follow for needs. ANTONIO Buchanan
--- NOTE | 2016-12-26 18:18 | NUR ---
Activity Requiring 2PA max to BSC commode and unable to clear feet from floor with movement. Up to EOB for meals. Frequent reminders/cueing for tasks and what order to do them in. Plan is for SNF at D/C. Bed alarm in place with fall precautions posted, call light within reach and making needs known appropriately.
--- NOTE | 2016-12-26 19:50 | PCM.PNMED ---
Subjective Date of Service December 26, 2016 Subjective Patient was seen and examined at bedside today. Patient denies any chest pain, shortness of breath, nausea, vomiting, diarrhea. Overnight events:None Exam Vital Signs Vital Sign - Last Date Time Temp Pulse Resp B/P Pulse Ox O2 Delivery O2 Flow Rate FiO2 12/26/16 17:27 37.6 154 18 116/75 93 Room Air 12/25/16 17:39 1.00 Intake and Output 12/25/16 12/25/16 12/26/16 Cumulative From/Thru 15:00 23:00 07:00 12/20/16 18:46 - 12/26/16 05:28 Intake Total 55 ml 1496 ml 200 ml 95747 ml Output Total 700 ml 84192 ml Balance 55 ml 796 ml 200 ml 3181 ml Intake Oral 1496 ml 200 ml 7846 ml IV Total 55 ml 5491 ml TPN/PPN 0 ml Packed Cells 694 ml FFP 500 ml Output Urine Total 700 ml 7275 ml Stool Total 75 ml Urine/Stool Mix 4000 ml # Voids 3 2 11 # Bowel Movements 1 1 Exam Physical Exam: GEN: Patient was awake, alert, responding appropriately to questions HEENT: Pupils equal round and reactive to light, extraocular eye muscles intact , Neck soft supple, trachea midline, nomocephalic/atraumatic CV: Tachycardia, irregular Respiratory: CTAB, no wheezes, rales, rhonchi GI: +bowel sounds x4, soft, compressible, nontender to palpation EXT: no clubbing, cyanosis, +3 pitting edema in the lower extremities bilaterally Neuro: Cranial nerves II-XII grossly intact Psych: mood and affect were appropriate IVs and Medications Medications Reviewed: Medications were reviewed in detail Lab and Diagnostics Result Diagram: 12/26/16 0545 12/26/16 0545 X-Rays, CTs and MRIs X-RAY CHEST ONE VIEW, PORTABLE 11/20/16 IMPRESSION: Small right pleural effusion with adjacent atelectasis. Please correlate clinically. Probable large hiatal hernia (this could be confirmed with upper GI series) and bibasilar atelectasis/interstitial disease. Scoliosis Dictated by: Kashif Angelo M.D. on 12/20/2016 at 20:14 Approved by: Kashif Angelo M.D. on 12/20/2016 at 20:16 Assessment & Plan 86-year-old female with suspected GI bleed Acute GI bleeding. Present on admission Suspect possible Diverticular bleeding. Differential diagnosis includes Colon cancer, Vascular ectasias, Inflammatory bowel disease, Hemorrhoids, Anal fissure. History of No's esophagitis but no clinical evidence of Upper GI bleeding such as hematemesis. 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 - Protonix has been continued at this time a milligrams twice a day anticipate transition to oral formulation shortly . - Protonix drip was not started though this was GI plan, have now initiated Protonix 80 mg IV twice daily, given stable H&H in the setting of no PPI use overnight. Now continuing Protonic 40mg daily. - Given plan to initiate warfarin prior to discharge she has recommendation that patient also undergo lower endoscopy to rule out any other sources of GI bleeding . - Patient underwent bowel prep and plan for colonoscopy yesterday, but this was canceled due to concern for cardiac function. - Now restarting warfarin, diet, observing for signs of recurrent bleeding - Continue to appreciate GI consultation and recommendations . - Follow up tagged RBC scan once therapeutic in anticipation of discharge home. Symptomatic anemia due to GI blood loss. Present on admission Chronic Iron deficiency anemia - 2 units packed RBC transfused from ED - monitor H/H, target to keep Hbg > 7, currently at goal following transfusion. Pt HDS. - H&H N overnight, lack of dark tarry stool supports cessation of GI bleeding. Stability will be helpful nonetheless toward identify location of GI bleed, and support this is - Continue to observe while titrating coumadin/INR - H&H downtrending overnight though in the setting of volume overload dilution may be a component, we will continue to trend with diuresis. Acute Kidney injury. Present on admission Likely due to pre renal azotemia due to hypovolemia - avoid nephrotoxic insults - We restarted diuretics due to apparent volume overload and exacerbation of CHF. - monitor urine output - avoid NSAID - Currently resolved Lymphedema and venous stasis problems Presumed stable - wound care consult requested and pending - keep leg elevated Hypertension currently stable with no evidence of volume loss - holding Metoprolol tonight in the event patient becomes hypotensive Atrial fibrillation on Coumadin Rate has been elevated, responds to metroprolol. - Cause inclear, possible volume overload though boarderline BPs and elevated pulse suggest dehydration, 3rd spacing more consistent with vomume excess. - Resp function stable. - continue monitor on telemetry - FU echocardiogram for further assessment of volume status and heart function - 40 mg Lasix today via IV, will resume 20 mg starting tomorrow continued improvement. Hyponatremia - Now normalized - Conditions mild in nature we will continue to monitor. CHF exacerbation - As noted above patient demonstrated evidence of volume overload, given heart strain increased work of breathing and radiographic evidence of pulmonary edema - As responded well to rate control and diuresis with Lasix. - We will continue to monitor cardiac function, or allergy consult was placed in pending in addition echocardiogram as noted above. Urinary tract infection - Noted on urine studies though asymptomatic - Currently treating Rocephin will transition oral anabolic on discharge is 5 day treatment course is not completely prior to this. Disposition: Anticipate 1-2 days to medically stabilize, given no evidence of recurrent GI bleed once therapeutic on warfarin. Additionally will require stabilized heart rate and cardiac functioning. Given PT evaluation shelter facility versus home discharge appears indicated, will reassess patient' s status at time of discharge to determine this. GI Prophylaxis: Proton Pump Inhibitor Resuscitation Status: CPR: Attempt Resuscitation Christina Pat DO December 26, 2016 19:50
[2016-12-27] VITALS (8 sets, daily range): BP systolic 94–135; BP diastolic 60–82; PULSE 95–144; RESP 17–19; O2SAT 92–95
--- NOTE | 2016-12-27 05:42 | NUR ---
NOC PT has slept most of the night. PT incontinent of urine and has been getting cleaned in bed due to the increased weakness pt displayed last martinez. It was difficult for her to even dangle at bedside. PT is working with physical therapy. Pt denies any pain. Anasarcas present in BUE and from essentially her waist down. Unaboots are on BLE. Weak PT pulses noted. PT strength is a 4/5 upon assessment, but for some reason she has gone from a 1pSBA to a 2 person max. PT remains in afib on tele with HR ranging from 112-119ish. She is currently on RA. Lungs are diminished t/o. Skin grossly intact. Pt is waiting for authorization for placement at [facility] per social work note. WIll CTM at this time.
[2016-12-27 06:27] LABS: Mean Corpuscular Hemoglobin 23.6 pg (27.0-35.0); Mean Corpuscular Volume 77.7 fL (81-100)
[2016-12-27 06:36] LABS: INR 2.19 ratio
[2016-12-27] MEDS: Pantoprazole 40 mg ER24 Tablet PO SCH (07:40)
[2016-12-27] MEDS: MeTOProlol XL 50 mg ER24 Tablet PO SCH ×2 (07:40→20:49)
[2016-12-27] MEDS: Furosemide 10 mg/mL 2 mL Inj IVPUSH SCH (07:42)
--- NOTE | 2016-12-27 08:38 | PCM.PNMED ---
Subjective Date of Service December 27, 2016 Subjective GI progress note Overnight patient did well. Eating well this morning although she feels full after about half of her breakfast. She denies any nausea/vomiting or hematochezia. INR yesterday was back in the therapeutic range and tagged RBC was ordered yesterday evening and had to be performed today. Exam Vital Signs Vital Sign - Last Date Time Temp Pulse Resp B/P Pulse Ox O2 Delivery O2 Flow Rate FiO2 12/27/16 04:46 37.1 96 18 101/65 93 Room Air 12/25/16 17:39 1.00 Intake and Output 12/26/16 12/26/16 12/27/16 Cumulative From/Thru 15:00 23:00 07:00 12/20/16 18:46 - 12/27/16 05:17 Intake Total 850 ml 150 ml 08606 ml Output Total 300 ml 92935 ml Balance 550 ml 150 ml 3881 ml Intake Oral 850 ml 150 ml 8846 ml IV Total 5491 ml TPN/PPN 0 ml Packed Cells 694 ml FFP 500 ml Output Urine Total 300 ml 7575 ml Stool Total 75 ml Urine/Stool Mix 4000 ml # Voids 1 3 15 # Bowel Movements 1 2 Exam General: Patient awake alert in no acute distress HEENT: Membranes moist Cardio: Regular rate tachy Respiratory: CTA bilaterally with crackles in the bases. Abdomen: No distention, positive bowel sounds, no noticeable tenderness Extremities: Bilateral lower extremities are wrapped in Richard wraps this patient states his sleeping; newly wrapped and did not remove wrap Neuro: Appears to be neurologically intact by sensation and cranial nerves Psych: Appropriate mood and affect Skin: No rashes noted or petechia IVs and Medications Medications Reviewed: Medications were reviewed in detail Lab and Diagnostics Result Diagram: 12/27/1660412/27/16604 X-Rays, CTs and MRIs X-RAY CHEST ONE VIEW, PORTABLE 11/20/16 IMPRESSION: Small right pleural effusion with adjacent atelectasis. Please correlate clinically. Probable large hiatal hernia (this could be confirmed with upper GI series) and bibasilar atelectasis/interstitial disease. Scoliosis Dictated by: Kashif Angelo M.D. on 12/20/2016 at 20:14 Approved by: Kashif Angelo M.D. on 12/20/2016 at 20:16 Assessment & Plan Assessment/plan 86-year-old female with a GI bleed thought to be second to multiple AVMs in the small bowel who will need an additional colonoscopy after discharge. Patient undergo tagged red blood cell scan today for evaluation of continued GI bleeding. Patient does not attest to any melena or hematochezia. As noted in previous notes patient will need cardiac follow-up within a week for additional optimization prior to following up with GI in 2 weeks to schedule colonoscopy. We await the results of the tagged RBCs. Thank you for allowing us to participate in the care of this patient I saw and examined this patient with the resident. Agree with the above. GI Prophylaxis: Proton Pump Inhibitor VTE Mechanical Devices: Anti-Embolic stockings Resuscitation Status: CPR: Attempt Resuscitation Iain Crum DO December 27, 2016 08:38 Tashi Villa MD January 03, 2017 20:11
--- NOTE | 2016-12-27 08:41 | NUR ---
Spoke with Mary at [facility] in admissions and they can accept the patient when ready. She has spoke with [employer] and faxed clinicals for authorization. Mary is hopeful to hear answer today. Updated [employer]
--- NOTE | 2016-12-27 10:00 | NUR ---
Patient off floor for scan
--- NOTE | 2016-12-27 11:41 | NUR ---
Patient back on floor.
[2016-12-27] MEDS: cefTRIAXone Inj 1,000 MG in Dextrose 5% Minibag Plus 50 ML IV SCH (11:46)
--- NOTE | 2016-12-27 13:56 | NUR ---
received TC from [employer], pt is approved to go to [facility]. Ref#[id number] Auth is good for a couple days, will need new auth if pt does not drive.
[2016-12-27] MEDS ORDERED: Furosemide 10 mg/mL 2 mL Inj IV ONE (14:05)
--- NOTE | 2016-12-27 14:14 | PCM.PHAPRO ---
Progress Warfarin Management by Pharmacy: -Indication: afib -Home Dose: warfarin 3mg on TuThSa and 6mg on MoWeFrSu -Inr Goal: 2-3 -Concurrent Anticoagulation: none -H/H 8.9/29.3 Platelets: 160 -Coagulation Trends: -December 24-December 25-December 26-December 27-December 1.36 1.52 2.08 2.4 2.19 0.16 0.56 0.32 -0.21 5 mg 5 MG 4 MG 2.5MG 3MG -Plan: pt did receive Phytonadione 10mg iv on 12/21 ~ 0230. will continue with warfarin 3mg this evening and monitor closely [facility] December 27, 2016 14:14
--- NOTE | 2016-12-27 14:51 | DRSVH ---
PROCEDURE: NM ACUTE GASTROINTESTINAL BLOOD LOSS (50766) RADIOPHARMACEUTICAL: 22.4 mCi Tc-99m in vitro labeled autologous red cells IV. INDICATIONS: GI BLEED. TECHNIQUE: Following intravenous administration of Tc-99m in vitro labeled autologous red cells, sequential ante rior abdominal images were obtained of the abdomen. COMPARISON: None. FINDINGS: There is no extravasation of labeled red cells in the abdomen or pelvis to suggest active gastrointestinal bleeding. IMPRESSION: No visualized gastrointestinal bleeding. Dictated by: Pat Arenas M.D. on 12/27/2016 at 14:49 Approved by: Pat Arenas M.D. on 12/27/2016 at 14:50
--- NOTE | 2016-12-27 16:14 | NUR ---
SW - Continued Discharge Planning Data: Pt is on day 6 of hospitalization for GI bleed, anemia. EMR reviewed. Pt discussed in morning rounds and is not medically ready to discharge, is now bleeding internally and source is being determined. PT evaluated pt and is recommending SNF. Pt is accepted at [facility] and insurance authorized. Pt can discharge to [facility] when medically stable. SW will continue to follow. Assessment: Pt who would benefit from SNF. Plan: Pt likely to discharge to [facility] when medically ready. SW will continue to follow for needs. ANTONIO Buchanan
--- NOTE | 2016-12-27 17:29 | DRSVH ---
[facility] [address] [place] [address] Echocardiogram Report Name: RACHEL ALONSO BStudy Date : 12/27/2016 Height: 64 in Hospital Exam Location: [facility] Weight: 153 lb Gender: Female BSA: 1.7 m2 : 1930 Age: 86 yrs BP: 101/65 mmHg Reason For Study: Persistent tachycardia Ordering Physician: Performed By: Geovanna Meredith Referring Physician: Juju Navarro Interpretation Summary The ejection fraction is estimated to be 50-55%. There is mild to moderate mitral regurgitation. There is mild to moderate tricuspid regurgitation. The right ventricular systolic pressure is estimated at 30 mmHg assuming a right atrial pressure of 8 mm Hg. Mild inferior hypokinesis is suspected. This is a new finding. Procedure: A two-dimensional transthoracic echocardiogram with color flow and Doppler was performed. Images from the parasternal window were difficult to obtain and are suboptimal in quality. Comparison is made with the echocardiogram of 07/02/2016. The study quality was technically difficult. The patient was in atrial fibrillation with heart rates between 93-116 bpm during the exam. Left Ventricle: The left ventricle is grossly normal size. The ejection fraction is estimated to be 50-55%. Mild inferior hypokinesis is suspected. This is a new finding. Diastolic function could not be accurately assessed due to atrial fibrillation. Right Ventricle: The right ventricle is mildly dilated. The right ventricular systolic function is normal. Atria: The left atrium is severely dilated. The right atrium is moderately dilated. There is no Doppler evidence for an interatrial shunt. Mitral Valve: The mitral valve is normal. There is mild to moderate mitral regurgitation. Aortic Valve: The aortic valve is not well visualized. There is no aortic valve stenosis. There is trace aortic regurgitation. Tricuspid Valve: The tricuspid valve leaflets are thin and pliable. There is mild to moderate tricuspid regurgitation. The right ventricular systolic pressure is estimated at 30 mmHg assuming a right atrial pressure of 8 mm Hg. Pulmonic Valve: The pulmonic valve is not well visualized. Great Vessels: The aortic root is not well visualized. The ascending aorta could not be visualized. The IVC is of normal diameter and collapses less than 50% with a sniff. This suggests a right atrial pressure of 8 mm Hg. Pericardium/ Pleura There is no pericardial effusion. There is a moderate right-sided pleural effusion. MMode/2D Measurements & Calculations RA long axis RVD1 (basal) RVD2 (mid) LA A2 area: 28.3 cm : 2.7 cm LA A4 area: 29.1 cm LA length (vol) RA area: 24.7 cm RA vol: 76.8 ml LA vol: 107.1 ml RA : 44.0 ml/m2 LA vol index IVC diam: 1.5 cm TAPSE: 1.8 cm Doppler Measurements & Calculations Ao V2 max MV E max surjit Med Peak E' Surjit TR max surjit : 117.3 cm/sec : 87.8 cm/sec : 237.4 cm/sec Ao max P.5 mmHg MV P1/2t E/E' med: 9.3 TR max PG Ao mean P.0 mmHg : 36.1 msec : 22.6 mmHg LVOT Max Surjit PA V2 max : 102.8 cm/sec : 63.4 cm/sec sev ratio: 0.87 PA mean PG AI P1/2t: 539.4 msec : 0.87 mmHg AI dec slope PA Accel Time : 0.07 sec : 219.9 cm/s2c MV P1/2t max surjit Ao V2 mean LV V1 max PG PA V2 mean : 83.0 cm/sec : 43.7 cm/sec MVA(P1/2t): 6.1 cm2 Ao V2 VTI: 17.5 cm LV V1 VTI: 15.2 cm Electronically signed by: Lan Kamara on Reading Physician:12/27/2016 05:28 PM
--- NOTE | 2016-12-27 19:21 | NUR ---
Appetite Pt states "not much appetite." RN encouraged better PO intake at dinner time. Will continue to monitor with frequent rounds.
--- NOTE | 2016-12-27 20:39 | PCM.PNMED ---
Subjective Date of Service December 27, 2016 Subjective Patient was seen and examined at bedside today. Patient denies any chest pain, shortness of breath, nausea, vomiting, diarrhea. Overnight events: None Exam Vital Signs Vital Sign - Last Date Time Temp Pulse Resp B/P Pulse Ox O2 Delivery O2 Flow Rate FiO2 12/27/16 17:26 Supplement Oxygen 12/27/16 17:05 36.9 125 18 135/82 93 12/25/16 17:39 1.00 Intake and Output 12/26/16 12/26/16 12/27/16 Cumulative From/Thru 15:00 23:00 07:00 12/20/16 18:46 - 12/27/16 05:17 Intake Total 850 ml 150 ml 54306 ml Output Total 300 ml 67659 ml Balance 550 ml 150 ml 3881 ml Intake Oral 850 ml 150 ml 8846 ml IV Total 5491 ml TPN/PPN 0 ml Packed Cells 694 ml FFP 500 ml Output Urine Total 300 ml 7575 ml Stool Total 75 ml Urine/Stool Mix 4000 ml # Voids 1 3 15 # Bowel Movements 1 2 Exam Physical Exam: GEN: Patient was awake, alert, responding appropriately to questions HEENT: Pupils equal round and reactive to light, extraocular eye muscles intact , Neck soft supple, trachea midline, nomocephalic/atraumatic CV: irregular irregular, tachycardic Respiratory: CTAB, no wheezes, rales, rhonchi GI: +bowel sounds x4, soft, compressible, nontender to palpation EXT: no clubbing, cyanosis, +3 pitting edema bilaterally up to the thighs Neuro: Cranial nerves II-XII grossly intact Psych: mood and affect were appropriate IVs and Medications Medications Reviewed: Medications were reviewed in detail Lab and Diagnostics Result Diagram: 12/27/1660412/27/16 06 X-Rays, CTs and MRIs X-RAY CHEST ONE VIEW, PORTABLE 11/20/16 IMPRESSION: Small right pleural effusion with adjacent atelectasis. Please correlate clinically. Probable large hiatal hernia (this could be confirmed with upper GI series) and bibasilar atelectasis/interstitial disease. Scoliosis Dictated by: Kashif Angelo M.D. on 12/20/2016 at 20:14 Approved by: Kashif Angelo M.D. on 12/20/2016 at 20:16 Assessment & Plan 86-year-old female with suspected GI bleed Acute GI bleeding. Present on admission Suspect possible Diverticular bleeding. Differential diagnosis includes Colon cancer, Vascular ectasias, Inflammatory bowel disease, Hemorrhoids, Anal fissure. History of No's esophagitis but no clinical evidence of Upper GI bleeding such as hematemesis. INR 4.89 - Stop IV fluids resuscitations - Status post upper endoscopy should not demonstrate any overt evidence of upper GI bleed though did show multiple areas concerning for AV malformation . - Protonix has been continued at this time a milligrams twice a day anticipate transition to oral formulation shortly . - Protonix drip was not started though this was GI plan, have now initiated Protonix 80 mg IV twice daily, given stable H&H in the setting of no PPI use overnight. Now continuing Protonic 40mg daily. - Given plan to initiate warfarin prior to discharge she has recommendation that patient also undergo lower endoscopy to rule out any other sources of GI bleeding . - Patient underwent bowel prep and plan for colonoscopy yesterday, but this was canceled due to concern for cardiac function. - Now restarting warfarin, diet, observing for signs of recurrent bleeding - Continue to appreciate GI consultation and recommendations . - Follow up tagged RBC scan once therapeutic in anticipation of discharge home. Symptomatic anemia due to GI blood loss. Present on admission Chronic Iron deficiency anemia - 2 units packed RBC transfused from ED - monitor H/H, target to keep Hbg > 7, currently at goal following transfusion. Pt HDS. - H&H N overnight, lack of dark tarry stool supports cessation of GI bleeding. Stability will be helpful nonetheless toward identify location of GI bleed, and support this is - Continue to observe while titrating coumadin/INR - H&H downtrending Acute Kidney injury. Present on admission Likely due to pre renal azotemia due to hypovolemia - avoid nephrotoxic insults - We restarted diuretics due to apparent volume overload and exacerbation of CHF. - monitor urine output - avoid NSAID - Currently resolved Lymphedema and venous stasis problems Presumed stable - wound care consult requested and pending - keep leg elevated -1 time dose of Lasix IV 20 Hypertension currently stable with no evidence of volume loss -Continue Metoprolol twice a day Atrial fibrillation on Coumadin Rate has been elevated, responds to metroprolol. - Cause inclear, possible volume overload though boarderline BPs and elevated pulse suggest dehydration, 3rd spacing more consistent with vomume excess. - Resp function stable. - continue monitor on telemetry - FU echocardiogram for further assessment of volume status and heart function - IV Lasix 20 mg 1 time dose today Hyponatremia - Now normalized - Conditions mild in nature we will continue to monitor. CHF exacerbation - As noted above patient demonstrated evidence of volume overload, given heart strain increased work of breathing and radiographic evidence of pulmonary edema - As responded well to rate control and diuresis with Lasix. - We will continue to monitor cardiac function, or allergy consult was placed in pending in addition echocardiogram as noted above. Urinary tract infection - Noted on urine studies though asymptomatic - Currently treating Rocephin will transition oral anabolic on discharge is 5 day treatment course is not completely prior to this. Disposition: The patient is very tachycardic secondary to her A. fib. We will give patient a dose of Lasix today and encourage the patient to continue to be up for her meals. The patient's H&H dropped today and nuclear medicine performed a tag red blood cell on her. We will follow up with results. Once patient's H&H is stable and her tachycardia is under control she should be able to be discharged to a fdc facility. Patient should follow up with GI in 2 weeks for possible colonoscopy. GI Prophylaxis: Proton Pump Inhibitor VTE Mechanical Devices: Anti-Embolic stockings Resuscitation Status: CPR: Attempt Resuscitation Christina Pat DO December 27, 2016 20:39
--- NOTE | 2016-12-27 23:03 | NUR ---
activity patient turned q 2 hours. weak condition. needs 2 person assist. alert and oriented x3, forgetful. encouraged po fluids and nutritional intake. care ongoing.
[2016-12-28] VITALS (8 sets, daily range): BP systolic 93–132; BP diastolic 53–77; PULSE 82–111; RESP 16–19; O2SAT 92–95
[2016-12-28 06:19] LABS: Mean Corpuscular Hemoglobin 23.2 pg (27.0-35.0); Mean Corpuscular Volume 78.7 fL (81-100)
[2016-12-28 06:43] LABS: INR 1.97 ratio
[2016-12-28] MEDS ORDERED: KCl 40 mEq/D5W 500 mL 40 MEQ in IV Premix 1 EACH IV ONE ×2 (07:30→16:30)
--- NOTE | 2016-12-28 08:40 | DRSVH ---
PROCEDURE: US VEINOUS LEG DUPLEX UNILATERAL, RIGHT INDICATIONS: calf pain TECHNIQUE: Real-time imaging, as well as color and pulse Doppler interrogation, were performed of the lower extr emity deep veins from the inguinal ligament to the popliteal fossa. COMPARISON: [facility] Ultrasound, US, US VENOUS REFLUX DPLX BILAT, 08/19/2016, 13:47. FINDINGS: The deep veins are normally compressible, and free of intraluminal thrombus. Color and pu lse Doppler demonstrate normal phasic intraluminal flow. Please note the right posterior tibial veins are poorly seen and suboptimally evaluated. IMPRESSION: No right lower extremity deep venous thrombus. Please note the right posterior tibial vei ns are poorly seen and suboptimally evaluated. Dictated by: Rohith Mayo M.D. on 12/28/2016 at 8:32 Approved by: Rohith Mayo M.D. on 12/28/2016 at 8:33
[2016-12-28] MEDS: Furosemide 10 mg/mL 2 mL Inj IVPUSH SCH (09:24)
[2016-12-28] MEDS: Pantoprazole 40 mg ER24 Tablet PO SCH (09:24)
[2016-12-28] MEDS: MeTOProlol XL 50 mg ER24 Tablet PO SCH ×2 (09:24→20:30)
--- NOTE | 2016-12-28 11:05 | PCM.PHAPRO ---
Progress Warfarin Management by Pharmacy: -Indication: afib -Home Dose: warfarin 3mg on TuThSa and 6mg on MoWeFrSu -Inr Goal: 2-3 -Concurrent Anticoagulation: none -H/H 8.5/28.9 Platelets: 160 -Coagulation Trends: -December 24-December 25-December 26-December 27-December 28-December 1.36 1.52 2.08 2.4 2.19 1.97 0.16 0.56 0.32 -0.21 -0.22 5 mg 5 MG 4 MG 2.5MG 3MG 4MG Plan: pt needs to be monitored closely. inr just below therapeutic level today at 1.97. will proceed with warfarin 4mg this evening and follow Teresa Vanegas [facility] December 28, 2016 11:05
--- NOTE | 2016-12-28 11:18 | NUR ---
ANDRA Signed at 1054 AM
--- NOTE | 2016-12-28 14:26 | PCM.PNMED ---
Subjective Date of Service December 28, 2016 Subjective Patient did well overnight. Tach Red cell scan was negative. No evidence fungal and bleeding. Review of systems negative Exam Vital Signs Vital Sign - Last Date Time Temp Pulse Resp B/P Pulse Ox O2 Delivery O2 Flow Rate FiO2 12/28/16 13:03 36.5 98 18 132/62 92 Room Air 12/25/16 17:39 1.00 Intake and Output 12/27/16 12/27/16 12/28/16 Cumulative From/Thru 15:00 23:00 07:00 12/20/16 18:46 - 12/28/16 04:44 Intake Total 822 ml 250 ml 32313 ml Output Total 60253 ml Balance 822 ml 250 ml 4953 ml Intake Oral 822 ml 250 ml 9918 ml IV Total 5491 ml TPN/PPN 0 ml Packed Cells 694 ml FFP 500 ml Output Urine Total 7575 ml Stool Total 75 ml Urine/Stool Mix 4000 ml # Voids 4 2 21 # Bowel Movements 0 2 Exam General: Patient awake alert in no acute distress HEENT: Membranes moist Cardio: Regular rate tachy Respiratory: CTA bilaterally with crackles in the bases. Abdomen: No distention, positive bowel sounds, no noticeable tenderness Extremities: Bilateral lower extremities are wrapped in Richard wraps this patient states his sleeping; newly wrapped and did not remove wrap Neuro: Appears to be neurologically intact by sensation and cranial nerves Psych: Appropriate mood and affect Skin: No rashes noted or petechia IVs and Medications Medications Reviewed: Medications were reviewed in detail Lab and Diagnostics Result Diagram: 12/28/16 1247 12/28/16 0554 X-Rays, CTs and MRIs X-RAY CHEST ONE VIEW, PORTABLE 11/20/16 IMPRESSION: Small right pleural effusion with adjacent atelectasis. Please correlate clinically. Probable large hiatal hernia (this could be confirmed with upper GI series) and bibasilar atelectasis/interstitial disease. Scoliosis Dictated by: Kashif Angelo M.D. on 12/20/2016 at 20:14 Approved by: Kashif Angelo M.D. 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 No ongoing bleeding as evidenced by tagged red blood cell scan. Asymmetric discharge from a GI standpoint. Thank you for allowing us participate in the care of this patient. Please see yesterdays progress note for follow-up recommendations. I saw and examined this patient with the resident. Agree with the above. GI Prophylaxis: Proton Pump Inhibitor VTE Mechanical Devices: Anti-Embolic stockings Resuscitation Status: CPR: Attempt Resuscitation Iain Crum December 28, 2016 14:26 Tashi Villa MD January 03, 2017 20:12 - H&H N overnight, lack of dark tarry stool supports cessation of GI bleeding. Stability will be helpful nonetheless toward identify location of GI bleed, and support this is - Continue to observe while titrating coumadin/INR - H&H downtrending Acute Kidney injury. Present on admission Likely due to pre renal azotemia due to hypovolemia - avoid nephrotoxic insults - We restarted diuretics due to apparent volume overload and exacerbation of CHF. - monitor urine output - avoid NSAID - Currently resolved Lymphedema and venous stasis problems Presumed stable - wound care consult requested and pending - keep leg elevated -1 time dose of Lasix IV 20 Hypertension currently stable with no evidence of volume loss -Continue Metoprolol twice a day Atrial fibrillation on Coumadin Rate has been elevated, responds to metroprolol. - Cause inclear, possible volume overload though boarderline BPs and elevated pulse suggest dehydration, 3rd spacing more consistent with vomume excess. - Resp function stable. - continue monitor on telemetry - FU echocardiogram for further assessment of volume status and heart function - IV Lasix 20 mg 1 time dose today Hyponatremia - Now normalized - Conditions mild in nature we will continue to monitor. CHF exacerbation - As noted above patient demonstrated evidence of volume overload, given heart strain increased work of breathing and radiographic evidence of pulmonary edema - As responded well to rate control and diuresis with Lasix. - We will continue to monitor cardiac function, or allergy consult was placed in pending in addition echocardiogram as noted above. Urinary tract infection - Noted on urine studies though asymptomatic - Currently treating Rocephin will transition oral anabolic on discharge is 5 day treatment course is not completely prior to this. Disposition: The patient is very tachycardic secondary to her A. fib. We will give patient a dose of Lasix today and encourage the patient to continue to be up for her meals. The patient's H&H dropped today and nuclear medicine performed a tag red blood cell on her. We will follow up with results. Once patient's H&H is stable and her tachycardia is under control she should be able to be discharged to a long term facility. Patient should follow up with GI in 2 weeks for possible colonoscopy. GI Prophylaxis: Proton Pump Inhibitor VTE Mechanical Devices: Anti-Embolic stockings Resuscitation Status: CPR: Attempt Resuscitation Iain Crum DO December 28, 2016 14:26
--- NOTE | 2016-12-28 16:13 | NUR ---
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 Updated [employer]
--- NOTE | 2016-12-28 16:20 | NUR ---
NUTRITION FOLLOW-UP: ASSESS: 86 YO female admitted for GI bleed and anemia. Pt is s/p colonoscopy on 12/23. Diet has been advanced to heart healthy with pt eating 100% of meals x 2 days. PMHx: A-fib, HTN, No's esophagitis, Psoriasis, hyperlipidemia, mitral and tricuspid regurgitation, hiatal hernia, diverticulosis, endometrial cancer s/p hysterectomy, lymphedema, osteopenia. LABS: Reviewed. K+ 3.3, Ca 8.0, Alb 2.3 MEDS: Reviewed. GI: BM x 1 (12/26) CURRENT WT: 72 kg. Admit wt: 69.6 kg. DIET: Heart Healthy, PO 100% x 2 days. EST. NEEDS: 4570-1101 kcals (25-30 kcals/kg BW), 70-105 g protein (1.0-1.5 g/kg BW) NUTRITION DIAGNOSIS: 1.) Inadequate oral intake related to decreased ability to consume sufficient energy as evidenced by current PO intake of 0-25% of meals x 3 days--IMPROVED. NUTRITION INTERVENTION: 1.) Continue to send ensure on all trays at this time. If pt continues to eat 100% of meal over the next 2-5 days, ensure supplements can be discontinued. MONITOR / EVAL: PO intake, labs, nutritional status. Follow per moderate nutritional risk guidelines.
--- NOTE | 2016-12-28 16:21 | PCM.PNMED ---
Subjective Date of Service December 28, 2016 Subjective Patient was seen and examined at bedside today. Patient denies any chest pain, shortness of breath, nausea, vomiting, diarrhea. Patient's was here today and a little bit upset the patient was not leaving at this time. He was explained to the that because the patient's blood levels have dropped this morning we needed to recheck this. The patient's is very demanding and does have a tendency to raise his voice. After everything was explained the patient seemed to understand however was still very unhappy with the fact that his is going to a snf facility. However when speaking to the and is not around she actually prefers to go to a snf facility as she does express that her can sometimes be a "bully" and feels that she would progress better if she went to a snf facility for rehabilitation. Overnight events: None Exam Vital Signs Vital Sign - Last Date Time Temp Pulse Resp B/P Pulse Ox O2 Delivery O2 Flow Rate FiO2 12/28/16 13:03 36.5 98 18 132/62 92 Room Air 12/25/16 17:39 1.00 Intake and Output 12/27/16 12/27/16 12/28/16 Cumulative From/Thru 15:00 23:00 07:00 12/20/16 18:46 - 12/28/16 04:44 Intake Total 822 ml 250 ml 18774 ml Output Total 72516 ml Balance 822 ml 250 ml 4953 ml Intake Oral 822 ml 250 ml 9918 ml IV Total 5491 ml TPN/PPN 0 ml Packed Cells 694 ml FFP 500 ml Output Urine Total 7575 ml Stool Total 75 ml Urine/Stool Mix 4000 ml # Voids 4 2 21 # Bowel Movements 0 2 Exam Physical Exam: GEN: Patient was awake, alert, responding appropriately to questions HEENT: Pupils equal round and reactive to light, extraocular eye muscles intact , Neck soft supple, trachea midline, nomocephalic/atraumatic CV: Tachycardic, irregular irregular Respiratory: CTAB, no wheezes, rales, rhonchi GI: +bowel sounds x4, soft, compressible, nontender to palpation EXT: no clubbing, cyanosis, +2 pitting edema in the lower extremities bilaterally Neuro: Cranial nerves II-XII grossly intact Psych: mood and affect were appropriate IVs and Medications Medications Reviewed: Medications were reviewed in detail Lab and Diagnostics Result Diagram: 12/28/16 1247 12/28/16 0554 X-Rays, CTs and MRIs X-RAY CHEST ONE VIEW, PORTABLE 11/20/16 IMPRESSION: Small right pleural effusion with adjacent atelectasis. Please correlate clinically. Probable large hiatal hernia (this could be confirmed with upper GI series) and bibasilar atelectasis/interstitial disease. Scoliosis Dictated by: Kashif Angelo M.D. on 12/20/2016 at 20:14 Approved by: Kashif Angelo M.D. on 12/20/2016 at 20:16 Assessment & Plan 86-year-old female with suspected GI bleed Acute GI bleeding. Present on admission Suspect possible Diverticular bleeding. Differential diagnosis includes Colon cancer, Vascular ectasias, Inflammatory bowel disease, Hemorrhoids, Anal fissure. History of No's esophagitis but no clinical evidence of Upper GI bleeding such as hematemesis. 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 - Protonix has been continued at this time a milligrams twice a day anticipate transition to oral formulation shortly . - Protonix drip was not started though this was GI plan, have now initiated Protonix 80 mg IV twice daily, given stable H&H in the setting of no PPI use overnight. Now continuing Protonic 40mg daily. - Given plan to initiate warfarin prior to discharge she has recommendation that patient also undergo lower endoscopy to rule out any other sources of GI bleeding . - Patient underwent bowel prep and plan for colonoscopy yesterday, but this was canceled due to concern for cardiac function. - Now restarting warfarin, diet, observing for signs of recurrent bleeding - Continue to appreciate GI consultation and recommendations . -Tagged red blood cell scan shows no GI bleeding Symptomatic anemia due to GI blood loss. Present on admission Chronic Iron deficiency anemia - 2 units packed RBC transfused from ED - monitor H/H, target to keep Hbg > 7, currently at goal following transfusion. Pt HDS. - H&H N overnight, lack of dark tarry stool supports cessation of GI bleeding. Stability will be helpful nonetheless toward identify location of GI bleed, and support this is - Continue to observe while titrating coumadin/INR - H&H was trending down this morning however repeat H&H shows that the patient' s hemoglobin is 10.5 Acute Kidney injury. Present on admission Likely due to pre renal azotemia due to hypovolemia - avoid nephrotoxic insults - We restarted diuretics due to apparent volume overload and exacerbation of CHF. - monitor urine output - avoid NSAID - Currently resolved Lymphedema and venous stasis problems Presumed stable - wound care consult requested and pending - keep leg elevated -Lasix has been restarted and the patient is tolerating this well Hypertension currently stable with no evidence of volume loss -Continue Metoprolol 50 mg twice a day Atrial fibrillation on Coumadin Rate has been elevated, responds to metroprolol. - Resp function stable. - continue monitor on telemetry - Echocardiogram: EF is 50-55%, with mild to moderate mitral and tricuspid regurg, right atrial pressure is 8 mmHg, there was some mild inferior hypokinesis that was suspected and this was a new finding - Continue Lasix IV 20 mg daily Hyponatremia - Potassium is currently 3.3 -Replace with 40 mEq of potassium IV -Patient most likely need 20 mEq by mouth daily now that Lasix has been restarted CHF exacerbation - As noted above patient demonstrated evidence of volume overload, given heart strain increased work of breathing and radiographic evidence of pulmonary edema - As responded well to rate control and diuresis with Lasix. - We will continue to monitor cardiac function, Urinary tract infection - Noted on urine studies though asymptomatic - Currently treating Rocephin will transition oral anabolic on discharge is 5 day treatment course is not completely prior to this. Disposition: Patient is currently doing well and her GI bleed has resolved and her heart rate is now back to baseline. The patient will mostly be discharged to snf facility tomorrow. GI Prophylaxis: Proton Pump Inhibitor VTE Mechanical Devices: Anti-Embolic stockings Resuscitation Status: CPR: Attempt Resuscitation Christina Pat DO December 28, 2016 16:21 Christina Pat DO December 28, 2016 16:21
[2016-12-28] MEDS ORDERED: Potassium Chloride 20 mEq SR Tablet PO SCH (16:35)
--- NOTE | 2016-12-28 16:36 | NUR ---
SW - Readiness for Discharge Data: Pt is on day 8 of hospitalization for GI bleed, anemia. EMR reviewed. Per MD pt is now medically ready for discharge and is approved at [facility], Authorization received. Pt will discharge tomorrow at 10am. Sole Ruffer contacted [facility] to arrange pick-up and is aware. No further needs assessed. SW will continue to follow. Assessment: Pt who would benefit from SNF. Plan: Pt to discharge to [facility] tomorrow morning at 10am. SW will continue to follow for needs. ANTONIO Buchanan
--- NOTE | 2016-12-28 18:13 | NUR ---
Potassium Potassium 3.3 this am, K-rider given, second k-rider ordered-not given per hospitalist order. Patient reported some burning with administration.
[2016-12-29 00:22] VITALS: BP 107/62; PULSE 98; RESP 16; O2SAT 93
[2016-12-29 04:34] VITALS: BP 118/67; PULSE 102; RESP 16; O2SAT 91
[2016-12-29 05:17] VITALS: PULSE 103
[2016-12-29 06:25] LABS: INR 1.98 ratio
--- NOTE | 2016-12-29 06:36 | NUR ---
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 Patient denies the urge to go and states "I thought I was just going the whole time". bladder scan shows 463mls. patient helped up to BSC 3PA. encouraging patient to void. will continue to monitor.
[2016-12-29] MEDS: Pantoprazole 40 mg ER24 Tablet PO SCH (07:44)
[2016-12-29 08:00] VITALS: PULSE 113
[2016-12-29] MEDS ORDERED: Potassium Chloride 20 mEq SR Tablet PO SCH (08:00)
[2016-12-29] MEDS ORDERED: WARF4TAB6 PO (08:14)
[2016-12-29] MEDS: MeTOProlol XL 50 mg ER24 Tablet PO SCH (08:17)
[2016-12-29] MEDS: Furosemide 10 mg/mL 2 mL Inj IVPUSH SCH (08:17)
--- NOTE | 2016-12-29 08:18 | PCM.DIMED ---
Discharge Instructions Date of Service December 29, 2016 Dates of Hospitalization December 20, 2016 at 20:52 Discharge Diagnosis Discharge Diagnosis Acute GI bleeding (resolved) Chronic Iron deficiency anemia Acute Kidney injury (resolved) Lymphedema and venous stasis (chronic) Hypertension Atrial fibrillation on Coumadin Hyponatremia CHF exacerbation Urinary tract infection Diet Heart Healthy Activity Other (As tolerated) Call your provider Shortness of breath, Bleeding, Excessive diarrhea, Weakness (unilateral) Patient Instructions Provider: Tashi Villa MD Follow-up in: 2 weeks (01/04/17 at 2:45pm please call his office for further information) Christina Pat DO December 29, 2016 08:18
[2016-12-29 08:50] VITALS: BP 116/63; PULSE 96; RESP 18; O2SAT 93
--- NOTE | 2016-12-29 10:13 | NUR ---
Social Work: Discharge Data: Pt is on day 9 of hospitalization. D/C orders are in. Pt will d/c to [facility] via wheelchair van at 10am. RN, , pt notified of plan. No further d/c planning needs identified at this time. NURSE SPECIAL will continue to follow if needs arise. Plan: Pt will d/c to [facility] via wheel chair van at 10am. No further d/c planning needs identified at this time. NURSE SPECIAL will continue to follow if needs arise. ANTONIO Lugo
--- NOTE | 2016-12-29 10:33 | NUR ---
Discharge Pt discharged to [facility], report given to admit CHERYL Tompkins. Pt transported via [facility] transportation.
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
== END 2016-12-29 10:35 | DRG 377 ==
LOC: SED 18:44 → MPC 20:52
PROVIDERS: ADMIT Hospitalist; ATTEND Hospitalist
PROC: 30233N1 Transfusion of Nonautologous Red Blood Cells into Peripheral Vein, Percutaneous Approach (ICD-10-PCS; 2016-12-20)
PROC: 30233K1 Transfusion of Nonautologous Frozen Plasma into Peripheral Vein, Percutaneous Approach (ICD-10-PCS; 2016-12-20)
PROC: 30233N1 Transfusion of Nonautologous Red Blood Cells into Peripheral Vein, Percutaneous Approach (ICD-10-PCS; 2016-12-21)
PROC: 30233K1 Transfusion of Nonautologous Frozen Plasma into Peripheral Vein, Percutaneous Approach (ICD-10-PCS; 2016-12-21)
PROC: 0DJ08ZZ Inspection of Upper Intestinal Tract, Via Natural or Artificial Opening Endoscopic (ICD-10-PCS; principal; 2016-12-22 15:30)
DX: K57.31 Diverticulosis of large intestine without perforation or abscess with bleeding (principal); I50.31 Acute diastolic (congestive) heart failure; N17.9 Acute kidney failure, unspecified; N39.0 Urinary tract infection, site not specified; E87.1 Hypo-osmolality and hyponatremia; Q27.33 Arteriovenous malformation of digestive system vessel; D50.0 Iron deficiency anemia secondary to blood loss (chronic); I48.2 Chronic atrial fibrillation; Z79.01 Long term (current) use of anticoagulants; I10 Essential (primary) hypertension; I89.0 Lymphedema, not elsewhere classified; I87.8 Other specified disorders of veins; K44.9 Diaphragmatic hernia without obstruction or gangrene; K22.70 Barrett's esophagus without dysplasia